=== PATIENT | male | born 1985 | race Caucasian/White ===

== ENCOUNTER 2020-02-08 17:44 | Emergency (ER) | payer OTHER, SELFPAY ==
[2020-02-08 17:50] VITALS: BP 129/82; PULSE 93; RESP 16; TEMP 37; O2SAT 99
--- NOTE | 2020-02-08 18:00 | DI.RAD_ITS ---
EXAM: XR FOOT LT COMPLETE CLINICAL HISTORY: atraumatic severe pain base of great toe. TECHNIQUE: 2D digital imaging was performed. COMPARISON: No exams were available for comparison FINDINGS: BONES: No acute fracture is present. No bony destructive lesion is seen. Small enthesophyte at the Ac hilles insertion site. JOINTS: No dislocation present. SOFT TISSUE: Normal. IMPRESSION: No acute abnormality. DATA REPOSITORY: RADIATION DOSE DELIVERED:
--- NOTE | 2020-02-08 18:05 | ED.GENADUL_ITS ---
Discharge Plan Disposition Patient Disposition: HOME Condition: Good Discharge Details Chief Complaint: Orthopedic Clinical Impression: Gout attack Primary Care Provider: None,None ED Provider: Karla Wallace Home Meds and New Rx's Prescriptions: New prednisone 10 mg tablet 10 mg PO DAILY Qty: 28 RF: 0 oxycodone 5 mg tablet 5 mg PO Q4H PRN (Reason: pain) Qty: 10 RF: 0 Discharge Instructions Instructions: Gout (ED) Additional Instructions: Encourage intake. Dietary changes discussed. You may use Tylenol and/or ibuprofen as needed for discomfort. You may augment this with the oxycodone as needed for pain. Please take this medication only as prescribed do not drive will take this medication. Please take the prednisone as prescribed. This is once daily dosing you are giving dosing already here today. Please continue with the postoperative shoe while pain persists. Please follow-up with primary care provider next week for reevaluation, I have asked her care support representative to help facilitate follow-up with primary. If you develop fever/chills, increased pain or other new/worsening symptoms please seek care urgently once again. Discharge Data Discharge Date/Time-TO BE ENTERED AT DEPARTURE: 02/08/20 19:45 Medical Decision Making <ISABELL Trinidad - Last Filed: 02/13/20 13:35> Patient is a pleasant 34-year-old male, accompanied by significant other, with chief complaint lower extremity pain. He reports that yesterday he began having severe pain in the left great toe. States that that time he noted to be erythematous and swollen. Erythema has subsided. Patient does report having history of gout. The single area of discomfort feels similar but he states that he awoke this morning having less severe discomfort in his bilateral ankles. He denies any fevers or chills. 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 No new shoes. Do not feel there particularly worn out. Denies any known trauma. Patient is not a diabetic. States his last episode of gout was several years ago. On exam, patient appears nontoxic. He is resting comfortably. He does ambulate with an antalgic gait. He has exquisite tenderness with small movements of the left great toe. He does have some mild erythema that almost appears more consistent with a urticarial rash on the dorsum of the great toe. No appreciable swelling, is not warm to the touch. He has full range of motion of the ankle although does endorse some discomfort with dorsiflexion. Angles appear equal bilaterally. Patient feels that they may be slightly swollen compared to his baseline but none is objectively noted. Again, no erythema, warmth or drainage. He has 2+ distal pulses bilaterally and brisk capillary refill. I see no evidence of infection. If this is gout, would be a very to presentation. As he has been more active and has a severity of discomfort it is possible he has a stress fracture and we will obtain x-rays. Other possibility would be for a typical gout flare and plan for labs to include uric acid as well as CBC for potential screening of infectious source. Labs reviewed. No leukocytosis. Patient has elevated CRP, elevated uric acid. This is confirmed the is a concern for gout. Plan to treat with prednisone. His pain is quite severe, will give oxycodone to be taken as needed. Patient given strict return precautions. We discussed the expected course. He will fo llow-up with his primary care next week for reevaluation. All of his questions or concerns were addressed and he is in agreement this plan. <Abhi Weaver MD - Last Filed: 02/08/20 22:54> I was physically present in the ED at time of evaluation and available for consultation. I was not consulted on this case. I did review documentation and agree with treatment plan as outlined. HPI <ISABELL Trinidad - Last Filed: 02/13/20 13:35> General Mode of arrival: wheelchair . Date/Time Provider Initiated Documentation: 02/08/20 18:05 . Limitations to Documentation: no limitations . Information obtained by: patient, family and RN notes reviewed . History of Present Illness 34 year old M presents to the emergency department with the chief complaint of left great toe and bilateral ankle , described as severe, with intensity rated at 9. Quality is described as stabbing, and is localized to the left, right and lower extremity. Patient reports no radiation. Patient started experiencing this day(s) (1) and it has been constant. Immobilization improves symptom(s), Movement worsens symptoms . Patient notes no other symptoms.; denies cough, fever/chills, nausea/vomiting, rash, shortness of breath and weakness. Patient did receive the following treatments prior to arrival, none Related Data Home Medications Medication Instructions Recorded Confirmed oxycodone 5 mg PO Q4H PRN #10 tab 02/08/20 prednisone 10 mg PO DAILY #28 tab 02/08/20 Previous Rx's Medication Instructions Recorded oxycodone 5 mg PO Q4H PRN #10 tab 02/08/20 prednisone 10 mg PO DAILY #28 tab 02/08/20 Allergies Allergy/AdvReac Type Severity Reaction Status Date / Time No Known Allergies Allergy Unverified 02/08/20 17:49 General Stated Complaint: Orthopedic FATOU: 3 Review of Systems <ISABELL Trinidad - Last Filed: 02/13/20 13:35> Constitutional Constitutional: Reports as per HPI, Denies chills, Denies fever(s), Denies headache(s) and Denies weakness ENT Ears, Nose, Mouth, and Throat: Denies headache(s) Cardiovascular Cardiovascular: Reports as per HPI Respiratory Respiratory: Reports as per HPI and Denies cough Musculoskeletal Musculoskeletal: Reports as per HPI and Denies tingling Integumentary/Breasts Skin/Breast: Reports as per HPI and Denies wounds Neurologic Neurologic: Reports as per HPI, Denies headache(s), Denies tingling, Denies paresthesias and Denies weakness [facility] <ISABELL Trinidad - Last Filed: 02/13/20 13:35> Medical History (Updated 02/08/20 @ 19:22 by ISABELL Trinidad) Gout attack (Acute) Social History Smoking/Tobacco Use Status: Never Alcohol Intake: never Drug use: Daily Substance use type: marijuana Do you feel safe at home: Yes Do you feel safe in your relationship?: Yes Exam <ISABELL Trinidad - Last Filed: 02/13/20 13:35> Const General: cooperative, healthy appearing, comfortable, no acute distress, well developed and well groomed Nutritional Appearance: well nourished and overweight Orientation: alert and awake Resp Effort & Inspection: normal respiratory effort, able to speak in complete sentences and no respiratory distress Cardio Rate: regular rate Rhythm: regular rhythm Skin General skin exam: erythema (mild erythema dorsal great toe) Neuro General: patient alert and patient awake Cognition: normal cognition Speech: speech normal Gait: antalgic Motor: muscle tone normal throughout Sensory Exam: no sensory deficits noted Extrem Right lower extremity: normal to inspection, full ROM, normal capillary refill, no joint enlargement, lower leg Details: normal to inspection, ankle Details: normal to inspection and foot Details: normal capillary refill and normal to inspection Left lower extremity: normal capillary refill, no joint enlargement, lower leg Details: normal to inspection and no edema; no tenderness, no localized swelling and no palpable cords and ankle Psych Appearance: grossly normal and well kempt Mental Status: mental status grossly normal Speech and Movement: speech and movement normal Course <ISABELL Trinidad - Last Filed: 02/13/20 13:35> Vital Signs Vital signs: Vital Signs Temperature 37 C 02/08/20 17:50 Pulse 93 H 02/08/20 17:50 Respiratory Rate 16 02/08/20 17:50 Blood Pressure 129/82 02/08/20 17:50 Pulse Oximetry 99 02/08/20 17:50 Temperature 37 C 02/08/20 17:50 Temperature Source Temporal Artery Scan 02/08/20 17:50 Pulse 93 H 02/08/20 17:50 Respiratory Rate 16 02/08/20 17:50 Respiratory Effort Non-Labored 02/08/20 17:54 Blood Pressure 129/82 02/08/20 17:50 Blood Pressure Position Sitting 02/08/20 17:50 Pulse Oximetry 99 02/08/20 17:50 Oxygen Delivery Method Room Air 02/08/20 17:50 Oxygen Flow Rate 0 02/08/20 17:50 Pain Level 9 02/08/20 17:50
[2020-02-08 18:42] LABS: Abs Immature Grans 0.02 k/cumm (0.0-0.09); Absolute Basophil Count 0.04 k/cumm (0.0-0.2); Absolute Eosinophil Count 0.19 k/cumm (0.0-0.7); Absolute Lymphocyte Count 2.55 k/cumm (1.2-3.4); Absolute Monocyte Count 0.79 k/cumm (0.11-0.7); Absolute Neutrophil Count 5.22 k/cumm (1.2-6.7); Basophils % 0.5; Eosinophils % 2.2; HCT 42.4 % (40.0-50.0); HGB 14.7 g/dL (13.5-17.5); Immature Grans % 0.2 %; Lymphocytes % 28.9; Mean Corp. HGB Concentration 34.7 g/dL (32.0-36.0); Mean Corpuscular Hemoglobin 30.2 pg (27.0-33.0); Mean Corpuscular Volume 87.1 fL (80-95); Mean Platelet Volume 10.1 fL (8.0-11.0); Neutrophils % 59.2; Platelet Count 255 x1000/uL (130-400); RBC 4.87 m/cumm (4.50-6.00); White Blood Cell Count 8.81 k/cumm (4.4-10.8)
--- NOTE | 2020-02-08 18:53 | DI.VRAD_ITS ---
PROCEDURE INFORMATION: Exam: XR Left Foot Complete Exam date and time: 02/08/2020 6:47 PM Age: 34 years old Clinical indication: Foot; Left; Patient HX: Pain base of 1st toe and ankle TECHNIQUE: Imaging protocol: XR Left foot. Views: 3 or more views. COMPARISON: No relevant prior studies available. FINDINGS: Bones/joints: No acute fracture. Joint spaces are maintained. No significant degenerative changes about the foot. Calcaneal Achilles enthesopathy. Soft tissues: Normal. IMPRESSION: No acute findings. Dictated and Authenticated by: Pilo Garrison MD. Ordering:ADAN Acosta MD
[2020-02-08 18:55] LABS: ALT 38 U/L (16-63); AST 32 U/L (15-37); Albumin 4.2 g/dL (3.4-5.0); Alkaline Phosphatase 96 U/L (46-116); Anion Gap 13.1 mmol/L (3-11); BUN 12 mg/dL (7-18); Bilirubin, Total 0.6 mg/dL (0.2-1.0); C-Reactive Protein 1.31 mg/dL (0.0-0.3); CO2 24.9 mmol/L (21.0-32.0); CREATININE 1.06 mg/dL (0.70-1.30); Calcium 9.2 mg/dL (8.5-10.1); Chloride 102 mmol/L (98-107); Glucose 83 mg/dL (74-106); Potassium 3.6 mmol/L (3.5-5.1); Sodium 140 mmol/L (136-145); Total Protein 8.1 g/dL (6.4-8.2); Uric Acid 11.3 mg/dL (3.5-7.2)
[2020-02-08] MEDS: oxyCODONE 5 MG TAB PO (19:29)
[2020-02-08] MEDS: predniSONE 20 MG TAB 40 MG PO (19:29)
[2020-02-08 19:34] LABS: ESR 12 mm/hr (0-15)
== END 2020-02-08 19:45 | disposition home or self-care (01) ==
LOC: ER 19:52
PROVIDERS: Emergency Provider Physician Assistant
DX: M10.9 Gout, unspecified (principal)
CPT/HCPCS: 36415; 80053; 85652; 99283; 73630; 84550; 85025; 86140; J7512

== ENCOUNTER 2024-08-05 13:36 | Emergency (ER) | payer OTHER, SELFPAY ==
[2024-08-05] VITALS (11 sets, daily range): BP systolic 126–147; BP diastolic 86–93; PULSE 92–105; RESP 14–21; TEMP 36.6; O2SAT 94–97
--- NOTE | 2024-08-05 13:30 | RT.EKG_ITS ---
APPROVED REPORT Exam: Resting ECG Reason for Exam: Chest Pain Patient Location: E HR:103 bpm ECG Measurements Heart Rate 103 AXIS DC 175 P 22 QRSd 99 QRS 2 QT 330 T -2 QTc 433 Conclusion Sinus tachycardia...rate> 99 Low voltage, precordial leads...precordial leads <1.0mV
--- NOTE | 2024-08-05 13:52 | W.ED.GENAD ---
Discharge Plan Disposition Patient Disposition: Home Condition: Stable Discharge Details Clinical Impression: Chest pain, Foot pain, right Primary Care Provider: Unknown,Unknown ED Provider: Benny Webster Home Meds and New Rx's Prescriptions: Continued acetaminophen 500 mg tablet 3,000 mg PO DAILY diclofenac sodium 75 mg tablet,delayed release (DR/EC) 75 mg PO BID allopurinol 100 mg tablet 200 mg PO DAILY lisinopril 5 mg tablet 5 mg PO DAILY prazosin 1 mg capsule 1 mg PO BID Uro-Mag 84.5 mg mag (140 mg) capsule 100 mg PO TID multivitamin [Daily Multi-Vitamin] Tablet 1 tab PO DAILY Lion's Jhony 1 dose PO DAILY Patient Comments: Pt takes as an OTC supplement Ducor Tail 1 dose PO DAILY Patient Comments: Pt takes as an OTC supplement Rx Instructions: OTC supplement Reishi 1 dose PO DAILY Patient Comments: Pt takes as an OTC supplement Chaga 1 dose PO DAILY Patient Comments: Pt takes as an OTC supplement Cordyceps 1 dose PO DAILY Patient Comments: Pt takes as an OTC supplement prednisone 10 mg tablet 10 mg PO DAILY Qty: 28 0RF Rx Instructions: 4 tabs x 4 days 3 tabs x 2 days 2 tabs x 2 days 1 tab x 2 days oxycodone 5 mg tablet 5 mg PO Q4H PRN (Reason: pain) Qty: 10 0RF Discharge Instructions Additional Instructions: Your labs and imaging did not show any concerning findings Follow-up with your primary care provider within 1 to 2 weeks If you feel more ill or have severe worsening pain or difficulty breathing return to the emergency department for reevaluation HPI General Mode of arrival: ambulatory. Date/Time Provider Initiated Documentation: 08/05/24 13:37. Limitations to Documentation: no limitations. Information obtained by: patient. History of Present Illness 38 year old M presents to the emergency department with the chief complaint of chest pain, anxiety, described as moderate, Quality is described as aching, and is localized to the chest. Patient reports no radiation. and it has been constant. No relieving factors improve symptom(s), No exacerbating factors reported . Patient notes chest pain; denies diaphoresis, fever/chills and shortness of breath. Patient did receive the following treatments prior to arrival, none Related Data Home Medications ?Medication ?Instructions ?Recorded ?Confirmed oxycodone 5 mg tablet 5 mg PO Q4H PRN pain #10 tabs 02/08/20 08/05/24 prednisone 10 mg tablet 10 mg PO DAILY #28 tabs 02/08/20 08/05/24 Chaga 1 dose PO DAILY 08/05/24 08/05/24 Cordyceps 1 dose PO DAILY 08/05/24 08/05/24 Abigail Booker 1 dose PO DAILY 08/05/24 08/05/24 Reishi 1 dose PO DAILY 08/05/24 08/05/24 Ducor Tail 1 dose PO DAILY 08/05/24 08/05/24 acetaminophen 500 mg tablet 3,000 mg PO DAILY 08/05/24 08/05/24 allopurinol 100 mg tablet 200 mg PO DAILY 08/05/24 08/05/24 diclofenac sodium 75 mg 75 mg PO BID 08/05/24 08/05/24 tablet,delayed release lisinopril 5 mg tablet 5 mg PO DAILY 08/05/24 08/05/24 magnesium oxide (Uro-Mag) 100 mg PO TID 08/05/24 08/05/24 multivitamin (Daily Multi-Vitamin 1 tab PO DAILY 08/05/24 08/05/24 tablet) prazosin 1 mg capsule 1 mg PO BID 08/05/24 08/05/24 Previous Rx's ?Medication ?Instructions ?Recorded oxycodone 5 mg tablet 5 mg PO Q4H PRN pain #10 tabs 02/08/20 prednisone 10 mg tablet 10 mg PO DAILY #28 tabs 02/08/20 Allergies Allergy/AdvReac Type Severity Reaction Status Date / Time No Known Allergies Allergy Unverified 08/05/24 13:46 General Stated Complaint: Chest Pain FATOU: 2 Review of Systems All systems reviewed & are unremarkable except as noted in HPI and below Constitutional Constitutional: Denies chills, Denies fever(s) and Denies weakness Cardiovascular Cardiovascular: Reports chest pain Respiratory Respiratory: Denies cough Gastrointestinal Gastrointestinal: Denies abdominal pain, Denies nausea and Denies vomiting Integumentary/Breasts Skin/Breast: Denies rash Neurologic Neurologic: Denies weakness Exam Const Orientation: alert [facility] Head: normal to inspection Ears: external ears normal General nose exam: external nose normal Mouth: moist mucous membranes Neck Neck: normal visual inspection Resp Effort & Inspection: normal respiratory effort and able to speak in complete sentences Auscultation: clear to auscultation bilaterally Cardio Rate: regular rate GI Palpation: soft and nontender Skin General skin exam: no rashes or lesions noted Neuro General: patient alert and patient oriented x3 Extrem General: normal to inspection Psych Mental Status: mental status grossly normal Course Vital Signs Vital signs: Vital Signs Temperature 36.6 C 08/05/24 13:39 Pulse 104 H 08/05/24 13:39 Respiratory Rate 19 08/05/24 13:39 Blood Pressure 147/93 H 08/05/24 13:39 Pulse Oximetry 94 08/05/24 13:39 Temperature 36.6 C 08/05/24 13:39 Pulse 104 H 08/05/24 13:39 Respiratory Rate 08/05/24 13:39 Blood Pressure 147/93 H 08/05/24 13:39 Blood Pressure Position Sitting 08/05/24 13:39 Pulse Oximetry 94 08/05/24 13:39 Oxygen Delivery Method Room Air 08/05/24 13:39 Oxygen Flow Rate 0 08/05/24 13:39 Pain Level 6 08/05/24 13:39 Medical Decision Making 38-year-old male with a history of chronic pain in his legs, anxiety, comes in with chest pain. He says he was feeling well this morning but then went to therapy session around 930 which caused him to be really stressed and started having chest pain and feeling anxious. Denies any difficulty breathing, diaphoresis, vomiting. The pain did not resolve over 4 to 5 hours of came here. He describes the pain as an anterior chest aching. He has reproducible anterior chest pain. Clear lungs, he does appear anxious. He has equal peripheral pulses. No calf tenderness. He does state that he had a week of right mid foot pain with no known trauma. There is no swelling of the legs and intact sensation and pulses. There is no palpable or visible deformities of the foot. No warmth or erythema of the foot. I suspect he is having anxiety, will treat with Ativan and given his chest pain check a CBC, CMP troponin and D-dimer. He has no tearing back pain and equal peripheral pulses so doubt dissection. Given lack of trauma doubt fracture of the foot has no findings to suggest infectious etiology but will obtain x-rays to exclude stress fracture. Labs and imaging show no acute findings. Patient is stable. He had symptoms for over 3 hours do not feel any delta troponin is indicated. I suspect this was anxiety, he is stable for discharge he will follow-up with his PCP return precautions given Differential Diagnosis Differential Diagnosis: Anxiety, NSTEMI Medical Records Medical records reviewed: Yes I reviewed the patient's medical records. Lab Data Lab results reviewed: Yes I reviewed the patient's lab results. ECG Data Attestation: I personally reviewed and interpreted this ECG (s) as follows: Prior ECG tracings: not available for review Interpretation: Sinus tachycardia, rate 103, WI 175, no STEMI Quality:SDOH Health Related Social Needs: No Data to Display PFSH All Active Problems (Updated 08/05/24 @ 15:12 by Benny Webster MD) Foot pain, right (Acute) Chest pain (Acute) Medical History (Updated 08/05/24 @ 15:12 by Benny Webster MD) Gout attack Social History Smoking/Tobacco Use Status: Never Smoking risk assessment performed?: Yes Alcohol Intake: never Drug use: Daily Substance use type: marijuana Do you feel safe at home: Yes Do you feel safe in your relationship?: Yes
[2024-08-05 13:57] LABS: Abs Immature Grans 0.04 10^3/uL (0.0-0.06); Absolute Basophil Count 0.05 10^3/uL (0.0-0.2); Absolute Lymphocyte Count 2.19 10^3/uL (1.2-3.4); Absolute Monocyte Count 0.56 10^3/uL (0.1-0.8); Absolute Neutrophil Count 4.65 10^3/uL (1.2-6.7); Basophils % 0.7 %; HCT 46.5 % (40.0-50.0); HGB 15.6 g/dL (13.5-17.5); Immature Grans % 0.5 %; Lymphocytes % 29.2 %; MCH 30.1 pg (27.0-33.0); MCHC 33.5 % (32.0-36.0); MCV 90 fL (80-95); MPV 9.9 fL (8.0-11.0); Monocytes % 7.5 %; Neutrophils % 62.1 %; Platelet Count 217 10^3/uL (130-400); RBC 5.19 10^6/uL (4.36-5.78); RDW 11.8 % (11.8-14.1); RDW-SD 38.7 fL; WBC 7.49 10^3/uL (4.4-10.8)
[2024-08-05] MEDS: LORazepam 2 MG/ML VIAL 1 MG IVP (14:06)
[2024-08-05 14:16] LABS: ALT 38 U/L (16-63); AST 24 U/L (15-37); Albumin 3.9 g/dL (3.4-5.0); Alkaline Phosphatase 102 U/L (46-116); Anion Gap 9.4 mmol/L (3-11); BUN 12 mg/dL (7-18); Bilirubin, Total 0.59 mg/dL (0.2-1.0); CO2 25.6 mmol/L (21.0-32.0); CREATININE 1.1 mg/dL (0.70-1.30); Calcium 9.2 mg/dL (8.5-10.1); Chloride 103 mmol/L (98-107); Estimated GFR 88.12 (mL/min/1.73m2); Glucose 122 mg/dL (74-106); Magnesium 2.2 mg/dL (1.8-2.4); Potassium 3.9 mmol/L (3.5-5.1); Sodium 138 mmol/L (136-145); Total Protein 7.4 g/dL (6.4-8.2)
[2024-08-05 14:30] LABS: Troponin I < 4 ng/L (<or=76)
[2024-08-05 14:31] LABS: D-Dimer 184 ng/mlFEU (<500)
--- NOTE | 2024-08-05 15:05 | DI.RAD_ITS ---
Exam(s) XR FOOT RT COMPLETE EXAM: XR FOOT RT COMPLETE CLINICAL HISTORY: pain. TECHNIQUE: 2D digital imaging was performed. Three views. COMPARISON: CR,XR XR FOOT LT COMPLETE from 02/08/2020 FINDINGS: BONES: No acute fracture is present. No bony destructive lesion is seen. Heel spurs. Metallic ancho rs noted in posterior talus. JOINTS: No dislocation present. SOFT TISSUE: Normal. IMPRESSION: No acute abnormality. DATA REPOSITORY: RADIATION DOSE DELIVERED:
--- NOTE | 2024-08-05 15:05 | DI.RAD_ITS ---
Exam(s) XR CHEST 2V PA LATERAL EXAM: XR CHEST 2V PA LATERAL CLINICAL HISTORY: chest pain TECHNIQUE: 2D digital imaging was performed. Two views. COMPARISON: No exams were available for comparison FINDINGS: HEART: Normal size. Aorta: Not dilated. PULMONARY VASCULATURE: Normal. MEDIASTINUM: Unremarkable. LUNGS: Clear. PLEURAL SPACE: No pleural effusion or pneumothorax. BONE:Unremarkable for age. SOFT TISSUES: Unremarkable. IMPRESSION: No acute abnormality. DATA REPOSITORY: RADIATION DOSE DELIVERED:
--- OUTSIDE RECORDS SUMMARY | 2024-08-05 15:22 | XMS_ITS | Encounter Summary ---
Author Organization [facility] Address [address] [place] [address] Care Team Providers Care Electric Organ Inspector And Repairer Name Role Phone Ariel Swanson DPAmina Unavailable Smita Daigle MD Primary Care Provider [phone] Reason for Visit * Reason Comments Ankle Pain * Auth/Cert (Routine) Specialty Diagnoses / Procedures Referred By Contac t Referred To Contact Referral ID Status Reason Start Date Expiration Date Visits Re quested Visits Authorized [id number] 1 1 Encounter Details Date Type Department Care Team (Late st Contact Info) Description 07/14/2024 12:36 PM EDT - 07/14/2024 1:43 PM EDT Emergency [facility] Emergency Department [address] [place] [phone] Discharge Disposition: Home or Self Care Social History Tobacco Use Types Packs/Day Years Used Date Smoking Tobacco: Never Smokeless Tobacco: Never Tobacco Cessation:Counseling Given: Not Answered Sex and Gender Information Value Date Recorded Sex Assigned at Not on file Gender Identity Not on file Sexual Orientation Not on file documented as of this encounter Last Filed Vital Signs Vital Sign Reading Time Taken Comments Blood Pressure 146/110 07/14/2024 12:35 PM EDT Pulse 80 07/14/2024 12:35 PM EDT Temperature 36.8 ??C (98.3 ??F) 07/14/2024 12:35 PM E DT Respiratory Rate 18 07/14/2024 12:35 PM EDT Oxygen Saturation 96% 07/14/2024 12:35 PM EDT Inhaled Oxygen Concentration 96% 07/14/2024 1 2:35 PM EDT Weight 113.4 kg (250 lb) 07/14/2024 12:35 PM EDT Height 185.4 cm (6' 1) 07/14/2024 12:35 PM EDT Body Mass Index 32.98 07/14/2024 12:35 PM EDT documented in this encounter Functional Status Functional Status Response Date of Assessment Stat us Are you deaf or do you have serious difficulty hearing? No 07/14/2024 Active Are you blind or do you have serious difficulty seeing, even when wearing glasses? No 07/14/2024 Activ e Do you have serious difficul ty walking or climbing stairs? (5 years old or older) No 07/14/2024 Active Do you have difficulty dress ing or bathing? (5 years old or older) No 07/14/2024 Active Because of a physical, menta l, or emotional condition, do you have difficulty doing errands alone such as visiting a doctor's office or shopping? (15 years old or older) No 07/14/2024 Active Cognitive Status Response Date of Assessment Statu s Because of a physical, menta l, or emotional condition, do you have serious difficulty concentrating, remembering, or making decisions? (5 years old or older) No 07/14/2024 Active documented as of this encounter Discharge Instructions * Discharge Instructions* Dhiraj Rodriguez PAC - 07/14/2024 1:23 PM EDT Your workup in the emergency department is significant for bone spurs of both of your heels. Is most likely what is causing you pain along with inflammation from osteoarthritis. Please continue to treat with Tylenol or NSAIDs. Please ice. He will need to follow-up with PCP/orthopedics for further management. documented in this encounter Medications at Time of Discharge Medication Sig Dispensed Refills Start Date End Date acetaminophen (Tylenol) 500 MG Tab TAKE 2 TABLETS (1000MG) BY MOUTH THREE TIMES A DAY NEEDED FOR PAIN 0 02/25/2024 02/25/2025 allopurinol (Zyloprim) 100 MG Tab TAKE TWO TABLETS BY MOUTH EVERY DAY FOR INCREASED URIC ACID 0 03/27/2024 03/28/2025 diclofenac (Voltaren) 75 MG Tablet Delayed ResponseIndications:Ar thritis of right ankle Take 1 Tablet (75 mg total) by mouth 2 times daily. 60 Tablet 3 04/14/2024 Diclofenac Sodium 1 % Gel APPLY 2 GRAMS TOPICALLY FOUR TIMES A DAY NEEDED FOR PAIN (USE SUPPLIED DOSE CARD)--DON'T EXCEED 16 GRAMS DAILY TO ANY AFFECTED JOINT OF THE LOWER EXTREMITIES. DON'T EXCEED 8 GRAMS DAILY TO ANY AFFE 0 09/17/2023 02/25/2025 lidocaine (Lidoderm) 5 % Patch APPLY 1 PATCH TO THE SKIN EVERY DAY NEEDED FOR PAIN (APPLY PATCH AND PRESS FIRMLY FOR 10 TO 15 SECONDS. PATCH MAY REMAIN IN PLACE FOR UP TO 12 HOURS IN ANY 24 HOUR PERIOD) 0 02/25/2024 02/25/2025 lisinopril 5 MG Tab 5 mg. 0 02/25/2024 magnesium oxide 140 MG Cap 140 mg. 0 02/25/2024 prazosin (Minipress) 1 MG Cap 1 mg. 0 02/25/2024 documented as of this encounter ED Notes * Dhiraj Rodriguez, PAC - 07/14/2024 12:37 PM EDT History Chief Complaint Patient presents with Ankle Pain Chief Complaint: Bilateral ankle pain HPI This is a 38 y.o. male who presents with past medical history of gout status post right fibula fixation with screws presents with bilateral ankle pain that brought him to tears today [place].Patient states that he was at [facility] 3 days ago and walked more than normal and now his ankles have been hurting. [facility] and was unable to bear weight had to sit down and was in tears. EMS was called. He did take Tylenol this morning and was given oral Tylenol en route. CMS intact. Denies any trauma. No fevers nausea or vomiting.. Past Medical History: Diagnosis Date Gout History reviewed. No pertinent surgical history. Social History Tobacco Use Smoking status: Never Smokeless tobacco: Never Review of Systems Constitutional: Negative for chills, diaphoresis, fatigue and fever. HENT: Negative. Eyes: Negative. Respiratory: Negative for cough, chest tightness and shortness of breath. Cardiovascular: Negative for chest pain, palpitations and leg swelling. Gastrointestinal: Negative for abdominal pain, diarrhea, nausea and vomiting. Endocrine: Negative. Genitourinary: Negative. Musculoskeletal: Ankle pain Skin: Negative. Allergic/Immunologic: Negative. Neurological: Negative for dizziness and light-headedness. Hematological: Negative. Psychiatric/Behavioral: Negative. Physical Exam Triage Vitals [07/14/24 1235] Temperature Heart Rate BP Respirations SpO2 36.8 ??C (98.3 ??F) 80 (!) 146/110 18 96 % Oximeter Pulse -- Physical Exam Vitals and nursing note reviewed. Constitutional: General: He is not in acute distress. Appearance: Normal appearance. He is not ill-appearing or toxic-appearing. Comments: Alert and aware male in no acute distress HENT: Head: Normocephalic and atraumatic. Nose: Nose normal. Mouth/Throat: Mouth: Mucous membranes are moist. Pharynx: Oropharynx is clear. Eyes: Extraocular Movements: Extraocular movements intact. Cardiovascular: Rate and Rhythm: Normal rate and regular rhythm. Pulses: Normal pulses. Heart sounds: Normal heart sounds. No murmur heard. No friction rub. No gallop. Pulmonary: Effort: Pulmonary effort is normal. Breath sounds: Normal breath sounds. No wheezing, rhonchi or rales. Abdominal: Palpations: Abdomen is soft. Tenderness: There is no abdominal tenderness. There is no guarding or rebound. Musculoskeletal: General: Normal range of motion. Cervical back: Normal range of motion. Comments: Bilateral ankle pain, right greater than left. Right ankle with swelling to the lateral malleolus and there is tenderness there. Mild tenderness to the medial malleolus. No fifth metatarsal tenderness. He does have full range of motion neurovascular intact. Left ankle with mild tenderness to the Achilles heel. He has a negative Allison's test. Full rangeof motion. Tendon appears to be intact. There is no medial or lateral malleolar fifth metatarsal tenderness. Neurovascularly intact Skin: General: Skin is warm and dry. Capillary Refill: Capillary refill takes less than 2 seconds. Findings: No rash. Neurological: General: No focal deficit present. Mental Status: He is alert and oriented to person, place, and time. Psychiatric: Mood and Affect: Mood normal. Behavior: Behavior normal. Procedures Pertinent diagnostic study results include: Diagnostic Imaging : XR Ankle Left Min 3 VW (07/14/2024 12:48) XR Ankle Right Min 3 VW (07/14/2024 12:48) EXAM: XR ANKLE RIGHT MIN 3 VW, XR ANKLE LEFT MIN 3 VW INDICATION: Bilateral ankle pain COMPARISON: None. TECHNIQUE: Three view(s) of the bilateral ankle were obtained. FINDINGS: Chronic postoperative/posttraumatic changes of the right ankle are demonstrated. Specifically, well-corticated ossific densities associated with the malleoli and screw anchors associated with the lateral malleolus are demonstrated. Asymmetric degenerative changes are demonstrated in association with the ankle mortise and subtalar joints. The tibiofibular syndesmosis also appears with some chronic appearing degenerative/posttraumatic change. The left ankle otherwise appears without distinct posttraumatic change or the appearance of clinically significant degenerative change. Calcaneal spurring is demonstrated bilaterally and symmetric. Right os perineum. Otherwise, the visualized osseous structures are intact without evidence of acute fracture, subluxation or dislocation. No significant erosive or destructive osseous changes. No retained radiopaque foreign bodies. The soft tissues are grossly within normal limits. IMPRESSION: No evidence of acute fracture or pathologic malalignment. Bilateral calcaneal spurring.Posttraumatic/postoperative and other associated degenerative changes of the right ankle as above. MDM (ED Course and Disposition) ASSESSMENT and PLAN This is a 38 y.o. male who presents with bilateral ankle pain, status post ORIF right fibula. Afebrile hemodynamic stable. Exam as above. Imaging shows bilateral calcaneal bone spurring, there is no acute fractures or dislocations. He has postsurgical changes in the right ankle. Patient did receive ketorolac. He will need to follow-up with PCP/orthopedics for further management. He is otherwise stable ready for discharge. Patient agrees with understands plan. Encounter Diagnosis Name Primary? Calcaneal spur of both feet Yes MDM: MDM Section: Refer to note content and Assessment/Plan ED CRITICAL CARE: Critical Care: No Dhiraj Rodriguez PAC 07/14/24 1324 * Angeles Blount RN - 07/14/2024 12:36 PM EDT Bed: ED 06 Expected date: 07/14/24 Expected time: 12:19 PM Means of arrival: [facility] Comments: 38 yo M * Ibrahima Delgado RN - 07/14/2024 12:27 PM EDT Pt BIB EMS d/t bilateral ankle pain. Pre existing repair to right ankle with osteoarthritis. Left ankle has been in pain x3 days. The right ankle has been in pain since march 26 of this year. Pt denies any injury or trauma to either ankle. Does report history of gout which he takes allopurinol for. Has been walking around [facility] for family vacation and started to bother him there. Has beenutilizing a cane, crutches, and a knee scooter for pain control/mobility. documented in this encounter Plan of Treatment Upcoming Encounters Date Type Department Care Team (Late st Contact Info) Description 08/07/2024 11:20 AM EDT Office Visit [facility] Orthopedics Sports Medicine and Podiatry [place] [address] [place] [phone] Ariel Swanson DPM [address] [place] [address] documented as of this encounter Procedures Procedure Name Priority Date/Time Associated Diagnosis Comments XR ANKLE RIGHT MIN 3 VW STAT 07/14/2024 1:03 PM EDT XR ANKLE LEFT MIN 3 VW STAT 07/14/2024 1:03 PM EDT documented in this encounter Results * XR Ankle Right Min 3 VW (07/14/2024 1:03 PM EDT) Anatomical Region Laterality Modality Leg, Ankle, Foot Computed Radiog radha 07/14/2024 12:5 5 PM EDT Narrative 07/14/2024 1:18 PM EDT EXAM: XR ANKLE RIGHT MIN 3 VW, XR ANKLE LEFT MIN 3 VW INDICATION: Bilateral ankle pain COMPARISON: None. TECHNIQUE: Three view(s) of the bilateral ankle were obtained. FINDINGS: ?? Chronic postoperative/posttraumatic changes of the right ankle are demonstrated. Specifically, well-corticated ossific densities associated with the malleoli and screw anchors associated with the lateral malleolus are demonstrated. Asymmetric degenerative changes are demonstrated in association with the ankle mortise and subtalar joints. The tibiofibular syndesmosis also appears with some chronic appearing degenerative/posttraumatic change. The left ankle otherwise appears without distinct posttraumatic change or the appearance of clinically significant degenerative change. Calcaneal spurring is demonstrated bilaterally and symmetric. Right os perineum. Otherwise, the visualized osseous structures are intact without evidence of acute fracture, subluxation or dislocation. No significant erosive or destructive osseous changes. ?? No retained radiopaque foreign bodies. ??The soft tissues are grossly within normal limits. ? IMPRESSION: No evidence of acute fracture or pathologic malalignment. Bilateral calcaneal spurring. Posttraumatic/postoperative and other associated degenerative changes of the right ankle as above. WORKSTATION: [id number] * * THIS IS AN ELECTRONICALLY VERIFIED REPORT CREATED USING VOICE RECOGNITION ??* * 07/14/2024 1:16 PM ??Rito Renee DO Procedure Note Rito Renee DO - 07/14/2024 EXAM: XR ANKLE RIGHT MIN 3 VW, XR ANKLE LEFT MIN 3 VW INDICATION: Bilateral ankle pain COMPARISON: None. TECHNIQUE: Three view(s) of the bilateral ankle were obtained. FINDINGS: Chronic postoperative/posttraumatic changes of the right ankle aredemonstrated. Specifically, well-corticated ossific densities associatedwith the malleoli and screw anchors associated with the lateral malleolusare demonstrated. Asymmetric degenerative changes are demonstrated in association with the anklemortise and subtalar joints. The tibiofibular syndesmosis also appearswith some chronic appearing degenerative/posttraumatic change. The leftankle otherwise appears without distinct posttraumatic change or the appearance of clinically significantdegenerative change. Calcaneal spurring is demonstrated bilaterally and symmetric. Right osperineum. Otherwise, the visualized osseous structures are intact without evidenceof acute fracture, subluxation or dislocation. No significant erosive or destructive osseous changes. No retained radiopaque foreign bodies. The soft tissues are grosslywithin normal limits. IMPRESSION: No evidence of acute fracture or pathologic malalignment.Bilateral calcaneal spurring. Posttraumatic/postoperative and otherassociated degenerative changes of the right ankle as above. WORKSTATION: [id number] * * THIS IS AN ELECTRONICALLY VERIFIED REPORT CREATED USING VOICERECOGNITION * * 07/14/2024 1:16 PM Rito Renee DO Dhiraj Rodriguez PAC IMG DIAGNOSTIC IMAGI NG ORDERABLES * XR Ankle Left Min 3 VW (07/14/2024 1:03 PM EDT) Anatomical Region Laterality Modality Leg, Ankle, Foot Computed Radiog radha 07/14/2024 12:5 0 PM EDT Narrative 07/14/2024 1:18 PM EDT EXAM: XR ANKLE RIGHT MIN 3 VW, XR ANKLE LEFT MIN 3 VW INDICATION: Bilateral ankle pain COMPARISON: None. TECHNIQUE: Three view(s) of the bilateral ankle were obtained. FINDINGS: ?? Chronic postoperative/posttraumatic changes of the right ankle are demonstrated. Specifically, well-corticated ossific densities associated with the malleoli and screw anchors associated with the lateral malleolus are demonstrated. Asymmetric degenerative changes are demonstrated in association with the ankle mortise and subtalar joints. The tibiofibular syndesmosis also appears with some chronic appearing degenerative/posttraumatic change. The left ankle otherwise appears without distinct posttraumatic change or the appearance of clinically significant degenerative change. Calcaneal spurring is demonstrated bilaterally and symmetric. Right os perineum. Otherwise, the visualized osseous structures are intact without evidence of acute fracture, subluxation or dislocation. No significant erosive or destructive osseous changes. ?? No retained radiopaque foreign bodies. ??The soft tissues are grossly within normal limits. ? IMPRESSION: No evidence of acute fracture or pathologic malalignment. Bilateral calcaneal spurring. Posttraumatic/postoperative and other associated degenerative changes of the right ankle as above. WORKSTATION: [id number] * * THIS IS AN ELECTRONICALLY VERIFIED REPORT CREATED USING VOICE RECOGNITION ??* * 07/14/2024 1:16 PM ??Rito Renee DO Procedure Note Rito Renee DO - 07/14/2024 EXAM: XR ANKLE RIGHT MIN 3 VW, XR ANKLE LEFT MIN 3 VW INDICATION: Bilateral ankle pain COMPARISON: None. TECHNIQUE: Three view(s) of the bilateral ankle were obtained. FINDINGS: Chronic postoperative/posttraumatic changes of the right ankle aredemonstrated. Specifically, well-corticated ossific densities associatedwith the malleoli and screw anchors associated with the lateral malleolusare demonstrated. Asymmetric degenerative changes are demonstrated in association with the anklemortise and subtalar joints. The tibiofibular syndesmosis also appearswith some chronic appearing degenerative/posttraumatic change. The leftankle otherwise appears without distinct posttraumatic change or the appearance of clinically significantdegenerative change. Calcaneal spurring is demonstrated bilaterally and symmetric. Right osperineum. Otherwise, the visualized osseous structures are intact without evidenceof acute fracture, subluxation or dislocation. No significant erosive or destructive osseous changes. No retained radiopaque foreign bodies. The soft tissues are grosslywithin normal limits. IMPRESSION: No evidence of acute fracture or pathologic malalignment.Bilateral calcaneal spurring. Posttraumatic/postoperative and otherassociated degenerative changes of the right ankle as above. WORKSTATION: Mine * * THIS IS AN ELECTRONICALLY VERIFIED REPORT CREATED USING VOICERECOGNITION * * 07/14/2024 1:16 PM Rito Renee DO Dhiraj Rodriguez PAC IMG DIAGNOSTIC IMAGI NG ORDERABLES documented in this encounter Visit Diagnoses Diagnosis Calcaneal spur of both feet- Primary documented in this encounter Administered Medications Inactive Administered Medications - up to 3 most recent administrations Medication Order MAR Action Action Date Dose Rate Site ketorolac (Toradol) injection 15 mg 15 mg, Intramuscular, Once, On Sat07/14/24 at 1300, For 1 dose, When ordered IV administer undiluted IV push over 15 seconds. Possible side effects: headache, stomach upset, heartburn. Given 07/14/2024 12:58 PM EDT 15 mg Left Deltoid documented in this encounter Active and Recently Administered Medications Times are shown in EDT. Scheduled Medication Order 07/12/2024 07/13/2024 07/14/2024 ketorolac (Toradol) injection 15 mg (COMPLETED) 15 mg, Intramuscular, Once, On Sat07/14/24 at 1300, For 1 dose, When ordered IV administer undiluted IV push over 15 seconds. Possible side effects: headache, stomach upset, heartburn. 1258 (Given - Provid er: Benny Miranda RN) documented in this encounter Care Teams Electric Organ Inspector And Repairer Relationship Specialty Start Date End Date Smita Daigle MD [address] [place] [address] PCP - General Family Medicine 07/14/24 Ariel Swanson DPM [address] [place] [address] Physician Podiatry 04/14/24 documented as of this encounter
--- OUTSIDE RECORDS SUMMARY | 2024-08-05 15:22 | XMS_ITS | Encounter Summary ---
Author Organization [facility] Address [address] [place] [address] Care Team Providers Care Screw Cutter Name Role Phone Abigail Jesus NP Primary Care Provider + [phone] Ariel Swanson DPAmina Unavailable Encounter Details Date Type Department Care Team (Late st Contact Info) Description 04/14/2024 Abstract [facility] Orthopedics Sports Medicine and Podiatry [address] [phone] Ariel Swanson DPM [address] [place] [address] Social History Tobacco Use Types Packs/Day Years Used Date Smoking Tobacco: Never Smokeless Tobacco: Never Sex and Gender Information Value Date Recorded Sex Assigned at Not on file Gender Identity Not on file Sexual Orientation Not on file documented as of this encounter Plan of Treatment Upcoming Encounters Date Type Department Care Team (Late st Contact Info) Description 08/07/2024 11:20 AM EDT Office Visit [facility] Orthopedics Sports Medicine and Podiatry [address] [phone] Ariel Swanson DPM [address] [place] [address] documented as of this encounter Visit Diagnoses Not on filedocumented in this encounter Care Teams Screw Cutter Relationship Specialty Start Date End Date Abigail Jesus NP [address] [place] [address] PCP - General Nurse Practitioner 04/10/24 07/13/24 Ariel Swanson DPM [address] [place] [address] Physician Podiatry 04/14/24 documented as of this encounter
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
--- OUTSIDE RECORDS SUMMARY | 2024-08-05 15:22 | XMS_ITS | Encounter Summary ---
Author Organization [facility] Address [address] [place] [address] Care Team Providers Care Photographic Printer Name Role Phone Abigail Jesus NP Primary Care Provider + [phone] Ariel Swanson DPM Unavailable Reason for Visit * Reason Comments Chest Pain * Auth/Cert (Routine) Specialty Diagnoses / Procedures Referred By Contac t Referred To Contact Referral ID Status Reason Start Date Expiration Date Visits Re quested Visits Authorized [id number] 1 1 Encounter Details Date Type Department Care Team (Late st Contact Info) Description 07/01/2024 11:07 AM EDT - 07/01/2024 1:43 PM EDT Emergency [facility] [address] [place] [phone] Discharge Disposition: Home or Self Care Social History Tobacco Use Types Packs/Day Years Used Date Smoking Tobacco: Never Smokeless Tobacco: Never Sex and Gender Information Value Date Recorded Sex Assigned at Not on file Gender Identity Not on file Sexual Orientation Not on file documented as of this encounter Last Filed Vital Signs Vital Sign Reading Time Taken Comments Blood Pressure 125/89 07/01/2024 1:41 PM EDT Pulse 58 07/01/2024 1:41 PM EDT Temperature 36.1 ??C (97 ??F) 07/01/2024 11:13 AM EDT Respiratory Rate 18 07/01/2024 1:41 PM EDT Oxygen Saturation 96% 07/01/2024 1:20 PM EDT Inhaled Oxygen Concentration 96% 07/01/2024 1 :20 PM EDT Weight 113.4 kg (250 lb) 07/01/2024 11:13 AM EDT Height 185.4 cm (6' 1) 07/01/2024 11:13 AM EDT Body Mass Index 32.98 07/01/2024 11:13 AM EDT documented in this encounter Functional Status Functional Status Response Date of Assessment Stat us Are you deaf or do you have serious difficulty hearing? No 07/01/2024 Active Are you blind or do you have serious difficulty seeing, even when wearing glasses? No 07/01/2024 Activ e Do you have serious difficul ty walking or climbing stairs? (5 years old or older) No 07/01/2024 Active Do you have difficulty dress ing or bathing? (5 years old or older) No 07/01/2024 Active Because of a physical, menta l, or emotional condition, do you have difficulty doing errands alone such as visiting a doctor's office or shopping? (15 years old or older) No 07/01/2024 Active Cognitive Status Response Date of Assessment Statu s Because of a physical, menta l, or emotional condition, do you have serious difficulty concentrating, remembering, or making decisions? (5 years old or older) No 07/01/2024 Active documented as of this encounter Discharge Instructions * Discharge Instructions* Sophia Luciano PAC - 07/01/2024 1:31 PM EDT Activities as tolerated. Maintain adequate hydration. Continue your current medications as directed. Close follow-up with your primary care provider for a recheck in the next 24 to 48 hours. Return to the emergency department with any worsening symptoms or concerns. * Attachments The following attachments cannot be sent through Care Everywhere. * Chest Pain (Cymraes) documented in this encounter Medications at Time [...] as of this encounter ED Notes * Sophia Luciano PAC - 07/01/2024 11:42 AM EDT History Chief Complaint Patient presents with Chest Pain Chief Complaint: chest pain HPI This is a 38 y.o. male with history of right ankle arthritis, PTSD, panic disorder, gout, who presents with chest pain. Patient was sent from the [place]. He states that his symptoms started yesterday afternoon. He reports heaviness and tightness in his upper chest. It seemed to radiate through to his back greater on the left than right. He did experience some shortness of breath. He states that he was not doing anything particularly strenuous at the time or throughout the day. Symptoms started after he ate. He notes that despite taking Tylenol Motrin and aspirin yesterday afternoon and evening his symptoms were persistent throughout the night to this morning. When he arrived at the [place] for a routine appointment today they sent him directly to the emergency department for evaluation. He states that he feels slight shortness of breath. He denies any pain with deep breathing. Pain seems to be worse when he moves specifically when he sits up. He rates his pain as an 9 out of 10 at this time. He denies any dizziness, headache, palpitations. He has been doing some long car trips over the past few weeks. No pain or swelling however in his extremities at this time. Family history of heart disease. He reports both his grandfathers in their 50s. He is not a smoker. He denies any fevers chills cough or congestion. No nausea vomiting or diaphoresis. History reviewed. No pertinent past medical history. History reviewed. No pertinent surgical history. Social History Tobacco Use Smoking status: Never Smokeless tobacco: Never Review of Systems Constitutional: Negative for chills and fever. HENT: Negative for congestion. Eyes: Negative. Respiratory: Negative for cough, shortness of breath and wheezing. Cardiovascular: Positive for chest pain. Negative for palpitations and leg swelling. Gastrointestinal: Negative for abdominal pain and nausea. Genitourinary: Negative. Musculoskeletal: Negative. Neurological: Negative. Psychiatric/Behavioral: Negative. Physical Exam Triage Vitals Temperature Heart Rate BP Respirations SpO2 07/01/24 1113 07/01/24 1113 07/01/24 1113 07/01/24 1113 07/01/24 1113 36.1 ??C (97 ??F) 69 (!) 137/102 16 97 % Oximeter Pulse 07/01/24 1115 58 Physical Exam Vitals and nursing note reviewed. Constitutional: General: He is not in acute distress. Appearance: He is not toxic-appearing or diaphoretic. HENT: Head: Normocephalic and atraumatic. Eyes: Extraocular Movements: Extraocular movements intact. Pupils: Pupils are equal, round, and reactive to light. Cardiovascular: Rate and Rhythm: Normal rate and regular rhythm. No extrasystoles are present. Heart sounds: Normal heart sounds. Pulmonary: Effort: Pulmonary effort is normal. No accessory muscle usage or respiratory distress. Breath sounds: No stridor. Examination of the right-middle field reveals decreased breath sounds. Examination of the left-middle field reveals decreased breath sounds. Examination of the right-lower field reveals decreased breath sounds. Examination of the left-lower field reveals decreased breath sounds. Decreased breath sounds present. No wheezing, rhonchi or rales. Comments: Taking a deep breath does not elicit pain Chest: Chest wall: No tenderness. Abdominal: General: Bowel sounds are normal. Palpations: Abdomen is soft. Musculoskeletal: General: Normal range of motion. Cervical back: Normal range of motion and neck supple. Right lower leg: No tenderness. No edema. Left lower leg: No tenderness. No edema. Comments: Right ankle is in a small Velcro splint Skin: General: Skin is warm and dry. Capillary Refill: Capillary refill takes less than 2 seconds. Neurological: General: No focal deficit present. Mental Status: He is alert and oriented to person, place, and time. Procedures Pertinent diagnostic study results include: EK sinus rhythm at a rate of 67, IL interval 175, QTc 410. No acute ST-T changes. Low voltage. No old EKG available for comparison. Interpreted by myself Labs: Labs Reviewed HS C-TROPONIN T - Normal CBC + AUTO DIFF - Normal D-DIMER DDU - Normal HS-CTNT 2 HOUR - Normal CBC + DIFFERENTIAL Narrative: The following orders were created for panel order CBC + Differential. Procedure Abnormality Status --------- ------ CBC and Differential[[id number]] Normal Final result Please view results for these tests on the individual orders. COMPREHENSIVE METABOLIC PANEL RAINBOW DRAW Narrative: The following orders were created for panel order [place] Draw - Blue, Red. Procedure Abnormality Status --------- ------ Blue Top[[id number]] Final result Red Top[[id number]] Final result Please view results for these tests on the individual orders. BLUE TUBE EXTRA RED TUBE EXTRA Diagnostic Imaging : Narrative & Impression EXAM: XR CHEST PORTABLE 1VW INDICATION: Chest Pain COMPARISON: None. TECHNIQUE: Single view of the chest. FINDINGS: The lungs are clear. There is no pleural effusion or pneumothorax. Mediastinal contour, hilar contour, heart size and pulmonary vascularity are within normal limits. Visualized osseous structures areunremarkable. IMPRESSION: No acute process identified. MDM (ED Course and Disposition) ASSESSMENT and PLAN This is a 38 y.o. male who [facility]. Patient states symptom started yesterday afternoon. He was not doing anything specific at the time. He denies any strenuous lifting. Pain persisted overnight into today despite taking Tylenol Motrin and aspirin yesterday. He has not taken any medications today. He states that the pain had him in tears this morning. He rates it as a 9 out of 10 at this time. It does radiate into his back. It is worse when he sits up. He denies any pain with deep breathing. No lower extremity pain or swelling. EKG has been done and reviewed. No acute EKG findings. IV established and labs have been sent. IV fluids, morphine, Zofran and aspirin have been ordered. Chest x-ray ordered. Cosideration for chest pain include but not limited to Myocardial ischemia, pericarditis, pulmonaryembolus, chest wall pain, pleural inflammation and pulmonary infectious causes. Heart score reviewed. ED Course as of 07/01/24 1241 SatJul 01, 2024 1241 Patient is resting comfortably at this time without complaints. Discomfort is improved after medications. Patient's D-dimer and troponin as well as other laboratory studies are otherwise unremarkable. Chest x-ray shows no evidence of infiltrate or pneumothorax. I discussed this with the patient. Plan will be for repeat troponin. I suspect this could be muscular, anxiety induced or esophageal spasm in nature. [SK] ED Course User Index [SK] Sophia Luciano PAC Patient has been resting without complaints. No return of symptoms. Repeat troponin remains negative. This is reassuring. I did discuss this with patient and family member at the bedside. I advised that he have close follow-up with his primary care provider. He does have some family history. He maybenefit from outpatient stress testing. In the meantime advised plenty of fluids, rest, anti-inflammatories and antacids as needed. Questions have been answered. Encounter Diagnosis Name Primary? Chest pain, unspecified type Yes MDM: MDM Section: Refer to note content and Assessment/Plan Labs: Ordered/reviewed Imaging: Ordered/reviewed ECG: Ordered/reviewed and Independent review ED CRITICAL CARE: Critical Care: No Spohia Luciano PAC 07/01/24 1423 * Fer Denney RN - 07/01/2024 11:09 AM EDT Central cp with radiation straight through the back. Constant pain with movements exacerbating pain, bending over reaching for anything or leaning forward. Sent from [place] clinic. Alert and oriented, gcs 15, no acute distress. documented in this encounter Plan of Treatment Upcoming Encounters Date Type Department Care Team (Late st Contact Info) Description 08/07/2024 11:20 AM EDT Office Visit [facility] [address] [place] [phone] Brend[address]ia [email or web address] [address] [place] [address] documented as of this encounter Procedures Procedure Name Priority Date/Time Associated Diagnosis Comments HS-CTNT 2 HOUR Timed 07/01/2024 1:04 PM EDT XR CHEST PORTABLE STAT 07/01/2024 11: 26 AM EDT EKG 12-LEAD STAT 07/01/2024 11:16 AM EDT RED TUBE EXTRA STAT 07/01/2024 11:15 AM EDT BLUE TUBE EXTRA STAT 07/01/2024 11:15 AM EDT HS C-TROPONIN T STAT 07/01/2024 11:15 AM EDT CBC + AUTO DIFF STAT 07/01/2024 11:15 AM EDT RAINBOW DRAW STAT 07/01/2024 11:15 AM EDT D-DIMER DDU STAT Add-on 07/01/2024 11:15 AM EDT CBC + DIFFERENTIAL STAT 07/01/2024 11 :15 AM EDT COMPREHENSIVE METABOLIC PANEL STAT 07/01/2024 11:15 AM EDT documented in this encounter Results * hs-TroponinT 2H (07/01/2024 1:04 PM EDT) HS-cTroponin T 2 Hour 6 </=13 ng/L 07/01/2024 1:25 PM EDT [facility] Comment:NORMAL Delta hs-TroponinT 2H 0 ng/L 07/01/2024 1:25 PM EDT [facility] Blood VENOUS STRUCTURE / Unknown Venipuncture / Unknown 07/01/2024 1:04 PM EDT 07/01/2024 1:06 PM EDT Ksenia Cano MD CHEMISTRY ORDERABLES [facility] [address] [id number] * XR Chest Portable 1VW (07/01/2024 11:26 [...] unremarkable. IMPRESSION: No acute process identified. WORKSTATION: [id number] * * THIS IS AN ELECTRONICALLY VERIFIED [...] areunremarkable. IMPRESSION: No acute process identified. WORKSTATION: [id number] * * THIS IS AN ELECTRONICALLY VERIFIED REPORT CREATED USING VOICERECOGNITION * * 07/01/2024 12:43 PM George Todd MD Ksenia Cano MD IMG DIAGNOSTIC IMAGI NG ORDERABLES * EKG 12 lead (07/01/2024 11:16 AM EDT) Pathologist [facility] ECG Heart Rate 67 bpm [facility]O ECG P-R Interval 175 ms [facility] ECG QRSD Interval 106 ms [facility] ECG QT Interval 388 ms [facility] ECG QTc 410 ms [facility]O ECG QRS Horizontal Tebbetts -18 deg [facility]O ECG QRS Tebbetts -1 deg [facility]ASTER NAVARRO 07/01/2024 11:1 6 AM EDT Impressions TRACEMASTER NAVARRO - 07/02/2024 7:58 AM EDT Sinus rhythm Low voltage, precordial leads RSR' in V1 or V2, right VCD or RVH Narrative Procedure Note Urbano Tran MD - 07/02/2024 IMPRESSION Sinus rhythm Low voltage, precordial leads RSR' in V1 or V2, right VCD or RVH Ksenia Cano MD ECG ORDERABLES [facility] * D-Dimer DDU (07/01/2024 11:15 AM EDT) [facility] D-Dimer DDU <150 <=230 ng/mL DDU 07/01/2024 12:33 PM EDT [facility] Comment:The stated range of <230 ng/mL is also the cut-off for deep vein thrombosis and/or pulmonary embolism exclusion in patients with low or moderate pretest probability. Blood VENOUS STRUCTURE / Unknown Venipuncture / Unknown 07/01/2024 11:15 AM EDT 07/01/2024 11:54 AM EDT Sophia LO HEMATOLOGY ORDERABLE S [facility] [address] [place] [address] * Red Top (07/01/2024 11:15 AM EDT) Just In Case - Red Top Hold for Add-on 07/01/2024 12:03 PM EDT [facility] Comment:Auto resulted Blood VENOUS STRUCTURE / Unknown Venipuncture / Unknown 07/01/2024 11:15 AM EDT 07/01/2024 11:54 AM EDT Ksenia Cano MD CHEMISTRY ORDERABLES [address] [address] * Blue Top (07/01/2024 11:15 AM EDT) Just In Case - Blue Top Hold for Add-on 07/01/2024 12:03 PM EDT [facility] Comment:Auto Resulted Blood VENOUS STRUCTURE / Unknown Venipuncture / Unknown 07/01/2024 11:15 AM EDT 07/01/2024 11:54 AM EDT Ksenia Cano MD CHEMISTRY ORDERABLES Performing Organization Address City/[facility]/ZIP Co de Phone Number [address] [address] * CBC and Differential (07/01/2024 11:15 AM EDT) Leukocytes 7.4 3.6 - 11.8 thou/uL 07/01/2024 11:58 AM EDT [facility] Erythrocytes 5.39 3.97 - 5.93 mil/uL 07/01/2024 11:58 AM EDT [facility] Hemoglobin 16.2 12.3 - 16.9 g/dL 07/01/2024 11:58 AM EDT [facility] Hematocrit 48.2 35.0 - 50.0 % 07/01/2024 11:58 AM EDT [facility] Mean Corpuscular Volume 89.4 77.3 - 95.6 fL 07/01/2024 11:58 AM EDT [facility] Mean Corpuscular Hemoglobin 30.1 24.1 - 32.4 pg 07/01/2024 11:58 AM [facility] Mean Corpuscular Hemoglobin Conc 33.6 30.7 - 35.7 g/dL 07/01/2024 11:58 AM [facility] Platelet Count 237 142 - 390 thou/uL 07/01/2024 11:58 AM [facility] Mean Platelet Volume 10.2 9.0 - 12.9 fL 07/01/2024 11:58 AM [facility] Erythrocyte Distribution Width SD 38.6 37.0 - 48.0 fL 07/01/2024 11:58 AM [facility] Erythrocyte Distribution Width CV 11.7 11.5 - 16.0 % 07/01/2024 11:58 AM [facility] Neutrophils Percent 59 37 - 73 % 07/01/2024 11:58 AM [facility] Lymphocytes Percent 32 15 - 50 % 07/01/2024 11:58 AM [facility] Monocytes Percent 8 5 - 14 % 11:58 AM [facility] Eosinophils Percent 0 0 - 8 % 07/01/2024 11:58 AM [facility] Basophils Percent 0 0 - 1 % 11:58 AM [facility] Immature Granulocytes Percent 0 0 - 1 % 07/01/2024 11:58 AM [facility] Neutrophils Absolute 4.38 1.50 - 8.40 thou/uL 07/01/2024 11:58 AM [facility] Lymphocytes Absolute 2.35 1.02 - 3.55 thou/uL 07/01/2024 11:58 AM [facility] Monocytes Absolute 0.62 0.26 - 1.07 thou/uL 07/01/2024 11:58 AM [facility] Eosinophils Absolute 0.00 0.00 - 0.57 thou/uL 07/01/2024 11:58 AM [facility] Basophils Absolute 0.02 0.00 - 0.08 thou/uL 07/01/2024 11:58 AM [facility] Immature Granulocytes Absolute 0.01 0.00 - 0.10 thou/uL 07/01/2024 11:58 AM [facility] Blood VENOUS STRUCTURE / Unknown Venipuncture / Unknown 07/01/2024 11:15 AM EDT 07/01/2024 11:54 AM EDT Ksenia Cano MD HEMATOLOGY ORDERABLE S Performing Organization Address City/[facility]/ZIP Co de Phone Number [address] [address] * hs- Troponin T - Panel (Base+2+4 hours) (07/01/2024 11:15 AM EDT) HS-cTroponin T 6 </=13 ng/L 07/01/2024 12:14 PM EDT [facility] Comment:NORMAL Blood VENOUS STRUCTURE / Unknown Venipuncture / Unknown 07/01/2024 11:15 AM EDT 07/01/2024 11:54 AM EDT Ksenia Cano MD CHEMISTRY ORDERABLES Performing Organization Address City/[facility]/ZIP Co de Phone Number [address] [address] * Comprehensive Metabolic Panel (07/01/2024 11:15 AM EDT) Sodium 140 135 - 145 mEq/L 07/01/2024 12:20 PM EDT [facility] Potassium 4.1 3.5 - 5.1 mEq/L 07/01/2024 12:20 PM EDT [facility] Chloride 102 96 - 108 mEq/L 07/01/2024 12:20 PM EDT [facility] Carbon Dioxide 28 21 - 30 mEq/L 07/01/2024 12:20 PM EDT [facility] Anion Gap 10 7 - 16 mEq/L 07/01/2024 12:20 PM EDT [facility] Blood Urea Nitrogen 12 6 - 20 mg/dL 07/01/2024 12:20 PM EDT [facility] Creatinine 0.94 0.50 - 1.30 mg/dL 07/01/2024 12:20 PM EDT [facility] BUN Creatinine Ratio 12.8 07/01/2024 12:20 PM EDT [facility] Glucose 93 70 - 99 mg/dL 07/01/2024 12:20 PM EDT [facility] Comment:Per ADA guidelines t hese ranges are for fasting glucose only Protein 7.5 6.4 - 8.3 g/dL 07/01/2024 12:20 PM EDT [facility] Albumin 4.5 3.5 - 5.1 g/dL 07/01/2024 12:20 PM EDT [facility] Globulin 3.0 2.0 - 3.5 g/dL 07/01/2024 12:20 PM EDT [facility] Albumin/Globulin Ratio 1.5 07/01/2024 12:20 PM EDT [facility] Bilirubin 0.3 <=1.2 mg/dL 07/01/2024 12:20 PM EDT [facility] Calcium 9.6 8.6 - 10.0 mg/dL 07/01/2024 12:20 PM EDT [facility] Alkaline Phosphatase 103 40 - 129 U/L 07/01/2024 12:20 PM EDT [facility] AST 22 8 - 48 U/L 07/01/2024 12:20 PM EDT [facility] ALT 21 7 - 55 U/L 07/01/2024 12:20 PM EDT [facility] EGFR (MDRD) >60 >60.0 mL/min/1.7 3m(2) 07/01/2024 12:20 PM EDT [facility] Comment:This test has multip le limitations. Please see [email or web address]. Blood VENOUS STRUCTURE / Unknown Venipuncture / Unknown 07/01/2024 11:15 AM EDT 07/01/2024 11:54 AM EDT Ksenia Cano MD CHEMISTRY ORDERABLES [facility] [address] [place] [address] documented in this encounter Visit Diagnoses Diagnosis Chest pain, unspecified type- Primary documented in this encounter Administered Medications Inactive Administered Medications - up to 3 most recent administrations Medication Order MAR Action Action Date Dose Rate Site aspirin chewable tablet 324 mg 324 mg, Oral, Daily, First dose on Sat07/01/24 at 1130, Possible side effects: easy bruising and bleeding, heartburn, ulcer Given 07/01/2024 11:34 AM EDT 324 mg morphine (PF) 4 MG/ML injection 4 mg 4 mg, Intravenous, Once, On Sat07/01/24 at 1130, For 1 dose, For IV Push: May be administered undiluted as IV push over 4-5 minutes; however further dilution with 5 ml Sterile Water or 0.9% NS to facilitate dose titration is appropriate. Use injectable agent if urgent/rapid analgesia is required or patient unable to take oral agent or oral agent ineffective after 60 minutes. Possible side effects: drowsiness, constipation, nausea/vomiting, rash. Given 07/01/2024 11:34 AM EDT 4 mg ondansetron (Zofran) injection 4 mg 4 mg, Intravenous, Once, On Sat07/01/24 at 1130, For 1 dose, For doses 8mg or less, may administer undiluted IV push over 2 minutes. Otherwise, dilute in 0.9% NS (sterile water not recommended) and infuse via infusion pump. Possible side effects: headache, fatigue, constipation Given 07/01/2024 11:37 AM EDT 4 mg documented in this encounter Active and Recently Administered Medications Times are shown in EDT. Scheduled Medication Order 06/29/2024 06/30/2024 07/01/2024 aspirin chewable tablet 324 mg 324 mg, Oral, Daily, First dose on Sat07/01/24 at 1130, Possible side effects: easy bruising and bleeding, heartburn, ulcer 1134 (Given - Provid er: Harry Coleman, EMT) morphine (PF) 4 MG/ML injection 4 mg (COMPLETED) 4 mg, Intravenous, Once, On Sat07/01/24 at 1130, For 1 dose, For IV Push: May be administered undiluted as IV push over 4-5 minutes; however further dilution with 5 ml Sterile Water or 0.9% NS to facilitate dose titration is appropriate. Use injectable agent if urgent/rapid analgesia is required or patient unable to take oral agent or oral agent ineffective after 60 minutes. Possible side effects: drowsiness, constipation, nausea/vomiting, rash. 1134 (Given - Provid er: Harry Coleman, EMT) ondansetron (Zofran) injection 4 mg (COMPLETED) 4 mg, Intravenous, Once, On Sat07/01/24 at 1130, For 1 dose, For doses 8mg or less, may administer undiluted IV push over 2 minutes. Otherwise, dilute in 0.9% NS (sterile water not recommended) and infuse via infusion pump. Possible side effects: headache, fatigue, constipation 1137 (Given - Provid er: Harry Coleman, EMT) documented in this encounter Care Teams Photographic Printer Relationship Specialty Start Date End Date Abigail Jesus, REAL [address] [place] [address] PCP - General Nurse Practitioner 04/10/24 07/13/24 Ariel Swanson DPM [address] [place] [address] Physician Podiatry 04/14/24 documented as of this encounter
--- OUTSIDE RECORDS SUMMARY | 2024-08-05 15:22 | XMS_ITS | Clinical Summary ---
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 Start course of NSAID. Phone: [phone] Last Assessment & Plan: History of osteochondritis dissecans of the right talus, history of lateral ankle stabilization, chronic pain with acute exacerbation. Patient was asking about possibility of physical therapy for his right ankle pain. Discussed that due to the osseous component of his pain physical therapy tends yield limited results. Patient would like to attempt regardless. Referral placed [facility] Chest pain 04/14/2024 Palpitations 04/14/2024 Panic disorder [...] Disability paperwork for patient's employer and disability [email or web address] filled out today with patient. Patient is [...] Disability paperwork for patient's employer and disability [email or web address] filled out today with patient. Patient is unable to bear weight for extended period of time and is therefore unable to perform essential duties for his job. We will follow-up in 1-1/2 to 2 months to continue monitoring of patient's symptoms, evaluate and follow, and determine potential return to work. Patient stated understanding of longitudinal care plan in place. Encounters Date Type Department Care Team Description 07/14/2024 12:36 PM EDT - 07/14/2024 1:43 PM EDT Emergency [facility] Emergency Department [address] [place] [phone] Discharge Disposition: Home or Self Care 07/01/2024 11:07 AM EDT - 07/01/2024 1:43 PM EDT Emergency [facility] Emergency Department [address] [place] [phone] Discharge Disposition: Home or Self Care 06/26/2024 11:20 AM EDT Office Visit [facility] Orthopedics Sports Medicine and Podiatry [address] [phone] Ariel Swanson DPM Arthritis of right ankle (Primary Dx); Chronic pain of right ankle; Osteochondritis dissecans of ankle, right; History of ankle surgery 05/05/2024 11:20 AM EDT Office Visit [facility] Orthoped[facility] Sports Medicine and Podiatry [address] [phone] Ariel Swanson DPM Arthritis of right ankle (Primary Dx); Chronic pain of right ankle; Osteochondritis dissecans of ankle, right; History of ankle surgery; 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 Last 3 Months Social History Tobacco Use Types Packs/Day Years [...] Mass Index 32.98 07/14/2024 12:35 PM EDT Plan of Treatment Upcoming Encounters Date Type Department Care Team (Late st Contact Info) Description 08/07/2024 11:20 AM EDT Office Visit [facility] Orthopedics Sports Medicine and Podiatry [place] [address] [place] [phone] Ariel Swanson DPM [address] [place] [address] Health Maintenance Due Date Last Done Comments Depression Screening 1997 HIV Screening with Documented Verbal Consent 2000 Hepatitis C Screening 2003 Lipid Screening 2020 TDAP/TD Vaccine 18+ 12/04/2020 12/04/2010 COVID-19 Vaccine ( season) 2024 Influenza Vaccine (#1) 2024 9, 09/11/2018, 09/10/2018, Additional history exists TAMI/ARB/ARNI Therapy: Medication Monitoring 07/01/2025 07/01/2024 Hepatitis B Vaccines Completed 06/06/2005, 12/27/2004, 05/10/2004 Pneumococcal: Peds (0-5y) OR At-Risk Patient (6-64y) Aged Out No longer [facility] based on patient's age to complete this topic Procedures Procedure Name Priority Date/Time Associated Diagnosis [...] of the right ankle as above. WORKST[facility]: [facility] * * THIS IS AN ELECTRONICALLY VERIFIED [...] of the right ankle as above. WORKSTATION: [facility] * * THIS IS AN ELECTRONICALLY VERIFIED REPORT CREATED USING VOICERECOGNITION * * 07/14/2024 1:16 PM Rito Renee DO Dhiraj Rodriguez [facility] IMG DIAGNOSTIC IMAGI NG ORDERABLES * XR [...] of the right ankle as above. WORKSTATION: [facility] * * THIS IS AN ELECTRONICALLY VERIFIED [...] of the right ankle as above. WORKSTATION: [employer] * * THIS IS AN ELECTRONICALLY VERIFIED REPORT CREATED USING VOICERECOGNITION * * 07/14/2024 1:16 PM Rito Renee DO Dhiraj Rodriguez PAC IMG DIAGNOSTIC IMAGI NG ORDERABLES * hs-TroponinT 2H (07/01/2024 1:04 PM EDT) HS-cTroponin T 2 Hour 6 </=13 ng/L 07/01/2024 1:25 PM EDT [facility] Comment:NORMAL Delta hs-TroponinT 2H 0 ng/L 07/01/2024 1:25 PM EDT [facility] Blood VENOUS STRUCTURE / Unknown Venipuncture / Unknown 07/01/2024 1:04 PM EDT 07/01/2024 1:06 PM EDT Ksenia Cano [place] [address] * XR Chest Portable 1VW (07/01/2024 11:26 [...] unremarkable. IMPRESSION: No acute process identified. WORKSTATION: [email or web address] [...] areunremarkable. IMPRESSION: No acute process identified. WORKSTATION: [id number] * * THIS IS AN ELECTRONICALLY VERIFIED [...] 410 ms [facility]ACEMASTER NAVARRO ECG QRS Horizontal Drummond -18 deg [facility]EM[facility]ER NAV[facility]O ECG QRS [place]mond -1 deg [facility]EMASTER NAVARRO 07/01/2024 11:1 6 AM EDT Impressions [facility]ACEMASTER NAVARRO - 07/02/2024 7:58 AM EDT Sinus rhythm Low voltage, precordial leads RSR' in V1 or V2, right VCD or RVH Narrative Procedure Note Urbano Tran MD - 07/02/2024 IMPRESSION Sinus rhythm Low voltage, precordial leads RSR' in V1 or V2, right VCD or RVH Ksenia Cano MD ECG ORDERABLES MARGARET BRCIEÑO * Red Top (07/01/2024 11:15 AM EDT) Just In Case - Red Top Hold for Add-on 07/01/2024 12:03 PM EDT [facility] Comment:Auto resulted Blood VENOUS STRUCTURE / Unknown Venipuncture / Unknown 07/01/2024 11:15 AM EDT 07/01/2024 11:54 AM EDT Ksenia Cano MD CHEMISTRY ORDERABLES Performing Organization Address [facility] Co de Phone Number [address] [address] * Blue Top (07/01/2024 11:15 AM EDT) Just In Case - Blue Top Hold for Add-on 07/01/2024 12:03 PM EDT [facility] Comment:Auto Resulted Blood VENOUS STRUCTURE / Unknown Venipuncture / Unknown 07/01/2024 11:15 AM EDT 07/01/2024 11:54 AM EDT Ksenia Cano MD CHEMISTRY ORDERABLES Performing Organization Address [facility] Co de Phone Number [address] [address] * hs- Troponin T - Panel (Base+2+4 hours) (07/01/2024 11:15 AM EDT) HS-cTroponin T 6 </=13 ng/L 07/01/2024 12:14 PM EDT [facility] Comment:NORMAL Blood VENOUS STRUCTURE / Unknown Venipuncture / Unknown 07/01/2024 11:15 AM EDT 07/01/2024 11:54 AM EDT Ksenia Cano MD CHEMISTRY ORDERABLES [place] [address] [place] [address] * CBC and Differential (07/01/2024 11:15 AM EDT) Leukocytes 7.4 3.6 - 11.8 thou/uL 07/01/2024 11:58 AM EDT [facility] Erythrocytes 5.39 3.97 - 5.93 mil/uL 07/01/2024 11:58 AM EDT [facility] Hemoglobin 16.2 12.3 - 16.9 g/dL 07/01/2024 11:58 AM EDT [facility] Hematocrit 48.2 35.0 - 50.0 % 07/01/2024 11:58 AM T [facility] Mean Corpuscular Volume 89.4 77.3 - 95.6 fL 07/01/2024 11:58 AM EDT [facility] Mean Corpuscular Hemoglobin 30.1 24.1 - 32.4 pg 07/01/2024 11:58 AM T [facility] Mean Corpuscular Hemoglobin Conc 33.6 30.7 - 35.7 g/dL 07/01/2024 11:58 AM [facility] Platelet Count 237 142 - 390 thou/uL 07/01/2024 11:58 AM [facility] Mean Platelet Volume 10.2 9.0 - 12.9 fL 07/01/2024 11:58 AM [facility] Erythrocyte Distribution Width SD 38.6 37.0 - 48.0 fL 07/01/2024 11:58 AM [facility] Erythrocyte Distribution Width CV 11.7 11.5 - 16.0 % 07/01/2024 11:58 AM T [facility] Neutrophils Percent 59 37 - 73 % 07/01/2024 11:58 AM EDT [facility] Lymphocytes Percent 32 15 - 50 % 07/01/2024 11:58 AM [facility] Monocytes Percent 8 5 - 14 % 11:58 AM EDT [facility] Eosinophils Percent 0 0 - 8 % 07/01/2024 11:58 AM EDT [facility] Basophils Percent 0 0 - 1 % 08/07/2 024 11:58 AM EDT [facility] Immature Granulocytes Percent 0 0 - 1 % 07/01/2024 11:58 AM EDT [facility] Neutrophils Absolute 4.38 1.50 - 8.40 thou/uL 07/01/2024 11:58 AM EDT [facility] Lymphocytes Absolute 2.35 1.02 - 3.55 thou/uL 07/01/2024 11:58 AM EDT [facility] Monocytes Absolute 0.62 0.26 - 1.07 thou/uL 07/01/2024 11:58 AM EDT [facility] Eosinophils Absolute 0.00 0.00 - 0.57 thou/uL 07/01/2024 11:58 AM EDT [facility] Basophils Absolute 0.02 0.00 - 0.08 thou/uL 07/01/2024 11:58 AM EDT [facility] Immature Granulocytes Absolute 0.01 0.00 - 0.10 thou/uL 07/01/2024 11:58 AM EDT [facility] Blood VENOUS STRUCTURE / Unknown Venipuncture / Unknown 07/01/2024 11:15 AM EDT 07/01/2024 11:54 AM EDT Ksenia Cano MD HEMATOLOGY ORDERABLE S [address] [address] * D-Dimer DDU (07/01/2024 11:15 AM EDT) D-Dimer DDU <150 <=230 ng/mL DDU 07/01/2024 12:33 PM EDT [facility] Comment:The stated range of <230 ng/mL is also the cut-off for deep vein thrombosis and/or pulmonary embolism exclusion in patients with low or moderate pretest probability. Blood VENOUS STRUCTURE / Unknown Venipuncture / Unknown 07/01/2024 11:15 AM EDT 07/01/2024 11:54 AM EDT Sophia LO HEMATOLOGY ORDERABLE S [facility] [address] [id number] * Comprehensive Metabolic Panel (07/01/2024 11:15 AM EDT) Sodium 140 135 - 145 mEq/L 07/01/2024 12:20 PM EDT [facility] Potassium 4.1 3.5 - 5.1 mEq/L 07/01/2024 12:20 PM EDT [facility] Chloride 102 96 - 108 mEq/L 07/01/2024 12:20 PM EDT [facility] Carbon Dioxide 28 21 - 30 mEq/L 07/01/2024 12:20 PM EDT [facility] Anion Gap 10 7 - 16 mEq/L 07/01/2024 12:20 PM EDT [facility] Blood Urea Nitrogen 12 6 - 20 mg/dL 07/01/2024 12:20 PM EDT [facility] Creatinine 0.94 0.50 - 1.30 mg/dL 07/01/2024 12:20 PM EDT [facility] BUN Creatinine Ratio 12.8 07/01/2024 12:20 PM EDT [facility] Glucose 93 70 - 99 mg/dL 07/01/2024 12:20 PM EDT [facility] Comment:Per ADA guidelines t hese ranges are for fasting glucose only Protein 7.5 6.4 - 8.3 g/dL 07/01/2024 12:20 PM EDT [facility] Albumin 4.5 3.5 - 5.1 g/dL 07/01/2024 12:20 PM EDT [facility] Globulin 3.0 2.0 - 3.5 g/dL 07/01/2024 12:20 PM EDT [facility] Albumin/Globulin Ratio 1.5 07/01/2024 12:20 PM EDT [facility] Bilirubin 0.3 <=1.2 mg/dL 07/01/2024 12:20 PM EDT [facility] Calcium 9.6 8.6 - 10.0 mg/dL 07/01/2024 12:20 PM EDT [facility] Alkaline Phosphatase 103 40 - 129 U/L 07/01/2024 12:20 PM EDT [facility] AST 22 8 - 48 U/L 07/01/2024 12:20 PM EDT [facility] ALT 21 7 - 55 U/L 07/01/2024 12:20 PM EDT [facility] EGFR (MDRD) >60 >60.0 mL/min/1.7 3m(2) 07/01/2024 12:20 PM EDT [facility] Comment:This test has multip le limitations. Please see [email or web address]. Blood VENOUS STRUCTURE / Unknown Venipuncture / Unknown 07/01/2024 11:15 AM EDT 07/01/2024 11:54 AM EDT Ksenia Cano MD CHEMISTRY ORDERABLES [address] [address] from Last 3 Months Insurance Payer Benefit Plan / Group Subscriber ID Effective Dates Phone Address Type [facility] [id number] 2024-[place] [employer] [address] [place] [address] Care Teams Room Service Clerk Relationship Specialty Start Date End Date Smita Daigle MD [address] [place] [address] PCP - General Family Medicine 07/14/24 Ariel Swanson DPM [address] [place] [id number] Physician Podiatry 04/14/24
--- OUTSIDE RECORDS SUMMARY | 2024-08-05 15:22 | XMS_ITS | Encounter Summary ---
Author Organization [facility] Address [address] [place] [address] Care Team Providers Care Clinical Quality Assurance Specialist Name Role Phone Abigail Jesus NP Primary Care Provider + [phone] Ariel Swanson DPM Unavailable Reason for Visit * Reason Comments Ankle Injury Foot Injury right * Consult, Test & Treat (Routine) - Authorized Specialty Diagnoses / Procedures Referred By Contac t Referred To Contact Orthopedic Diagnoses Pain in right ankle and joints of right foot Smita Daigle MD [address] [place] [address] Ariel Swanson DPM [address] [place] [address] Referral ID Status Reason Start Date Expiration Date V isits Requested Visits Authorized [id number] Authorized 04/14/2024 09/22/2024 12 12 Encounter Details Date Type Department Care Team (Late st Contact Info) Description 04/14/2024 9:30 AM EDT Office Visit [facility] Orthopedics Sports Medicine and Podiatry [place] [address] [place] [phone] Ariel Swanson DPM [address] [place] [address] Arthritis of right ankle (Primary Dx); Chronic pain of right ankle; Osteochondritis dissecans of ankle, right; Chronic gout of right ankle, unspecified cause; History of ankle surgery; 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 Social History Tobacco Use Types Packs/Day Years Used Date Smoking Tobacco: Never Smokeless Tobacco: Never Tobacco Cessation:Counseling Given: Not Answered Sex and Gender Information Value Date Recorded Sex Assigned at Not on file Gender Identity Not on file Sexual Orientation Not on file documented as of this encounter Last Filed Vital Signs Vital Sign Reading Time Taken Comments Blood Pressure 143/89 04/14/2024 9:11 AM EDT Pulse - - Temperature - - Respiratory Rate - - Oxygen Saturation - - Inhaled Oxygen Concentration - - Weight 113.4 kg (250 lb) 04/14/2024 9:11 AM EDT Height 185.4 cm (6' 1) 04/14/2024 9:11 AM EDT Body Mass Index 32.98 04/14/2024 9:11 AM EDT documented in this encounter Progress Notes * Ariel Swanson DPM - 04/14/2024 10:11 AM EDTAssociated Problem(s): 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 Thisfracture does not appear acute. Patient is having pain clinically in this area. We will mobilize and continue to monitor. Reviewed and independently interpreted imaging with patient. Answered all question patient satisfaction. Continue prescribed anti-inflammatory medication and immobilization withdispensed ankle brace. Patient stated understanding of longitudinal care plan in place. * Ariel Swanson DPM - 04/14/2024 10:09 AM EDTAssociated Problem(s): History of ankle surgery History of osteochondritis dissecans repair, ankle arthroscopy, and lateral ankle stabilization of the right ankle. Patient continuing to have chronic pain. Continue to monitor and workup. * Ariel Swanson DPM - 04/14/2024 10:08 AM EDTAssociated Problem(s): Gout, unspecified No acute evidence of gout flare of the right ankle. Arthritis on imaging resembles posttraumatic arthritis/primary osteoarthritis as compared to gouty arthritis. Underlying gout could potentially be playing a factor in patient's pain. I recommend continuing allopurinol 200 mg daily at this time. Continue to monitor. 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 Patient is continuing to have right ankle pain, acute on chronic. We will attempt immobilizationand anti-inflammatory modalities and continue to monitor symptoms. Follow-up in 2 to 3 weeks. Patient stated understanding of longitudinal care plan in place. * Ariel Swanson DPM - 04/14/2024 10:07 AM EDTAssociated Problem(s): Chronic pain of right ankle History of osteochondritis dissecans of the right talus, history of lateral ankle stabilization, chronic pain with acute exacerbation. * Ariel Swanson DPM - 04/14/2024 10:06 AM EDTAssociated Problem(s): Arthritis of right ankle Discussed etiology of right ankle arthritis. Reviewed and independently interpreted external imaging with patient. Answered all questions patient satisfaction. Discussed treatment options ranging from conservative to surgical care. Discussed with patient that first-line treatment for ankle arthritis is immobilization and inflammation control. Discussed use of anti-inflammatory medication, icing, elevation, and compression dressings. Patient has recently completed a course of Medrol Dosepak thatdid not improve symptoms. Decision was made to attempt prescription strength NSAIDs. Prescription for diclofenac 75 mg twice daily as needed sent to patient's pharmacy. Discussed taking routinely for 1 week and then using as needed at that point. Discussed immobilization with OTC bracing modalities. Fitted and dispensed ankle stabilizer brace today. Patient stated comfort in the brace. Long discussion was had with patient about potential surgical options as he has been dealing with this condition for an extended period of time. Discussed that based on the level of arthritis that is present inhis right ankle treatment options consist of ankle joint replacement, ankle arthrodesis, or (based on patient's initial request) below-knee amputation with prosthesis. Discussed that due to patient'betsy he is not an ideal candidate for ankle joint replacement. Discussed most appropriate treatment modality if we get to the point of surgical discussion would be ankle arthrodesis. Prior to proceeding with an ankle arthrodesis I would recommend a more custom AFO to attempt to immobilize the ankle joint further. There could be additional underlying causes of ankle pain not related to his arthritis in these differential diagnoses would need to be explored further before progressing to surgical intervention. Patient stated understanding. We will attempt immobilization and anti-inflammatory modalities for the next 2 to 3 weeks and follow-up at that time for continued monitoring. Patient statedunderstanding of longitudinal care plan in place. * Ariel Swanson DPM - 04/14/2024 9:51 AM EDT HPI: Vitor Dias presents with a chief complaint of chronic right ankle pain that has become acutelymore painful. Patient has a significant history with this ankle. States he sprained this ankle approximately 5 to 6 years ago and initially underwent an arthroscopy of the ankle joint where cartilage was cleaned up. He later underwent a lateral ankle stabilization of the right ankle which seem toalleviate pain for a while. States that he has dealt with gouty flares in this ankle in the past. He is currently utilizing allopurinol 200 mg daily and has not had an acute gout flare in a long time. He recently attempted a Medrol Dosepak prescribed by an outside provider that did not seem to alleviate his right ankle pain. States that compression dressings tend to help his right ankle pain. He has attempted a cam boot for immobilization, but this caused significant back pain and he is unable to utilize this form of immobilization. States that the pain is most notable when he is weightbearing, but can cause sudden spasms/shooting pains on both the medial and lateral aspects of the ankle.States that he has been unable to work for the last 2 weeks due to the significant pain in his right ankle. He is here today to discuss treatment options. Patient states he is ready to cut his leg off if that is an option. He is utilizing crutches for ambulation. Denies any other pedal complaints. Denies any constitutional symptoms. His PCP is Abigail Jesus. Referring provider is Smita Daigle. Referral and most recent office note reviewed in detail prior to this appointment. History: No past medical history on file. [...] depressive disorder, recurrent episode, with atypical features ([facility] V24) Major depressive disorder, recurrent, severe with [...] systems reviewed and are negative. Vital Signs: BP 143/89 Ht 1.854 m (6' 1) Wt 113.4 [...] ankle. Assessment/Plan: 1. Arthritis of right ankle diclofenac (Voltaren) 75 MG Tablet Delayed Response 2. Chronic pain of right ankle 3. Osteochondritis dissecans of ankle, right 4. Chronic gout of right ankle, unspecified cause 5. History of ankle surgery 6. 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 Reviewed and independently interpreted external imaging with patient. Answered all questions patient satisfaction. Discussed treatment options ranging from conservative to surgical care. Discussed with patient that first-line treatment for ankle arthritis is immobilization and inflammation control. Discussed use of anti-inflammatory medication, icing, elevation, and compression dressings. Patient has recently completed a course of Medrol Dosepak thatdid not improve symptoms. Decision was made to attempt prescription strength NSAIDs. Prescription for diclofenac 75 mg twice daily as needed sent to patient's pharmacy. Discussed taking routinely for 1 week and then using as needed at that point. Discussed immobilization with OTC bracing modalities. Fitted and dispensed ankle stabilizer brace today. Patient stated comfort in the brace. Long discussion was had with patient about potential surgical options as he has been dealing with this condition for an extended period of time. Discussed that based on the level of arthritis that is present inhis right ankle treatment options consist of ankle joint replacement, ankle arthrodesis, or (based on patient's initial request) below-knee amputation with prosthesis. Discussed that due to patient'betsy he is not an ideal candidate for ankle joint replacement. Discussed most appropriate treatment modality if we get to the point of surgical discussion would be ankle arthrodesis. Prior to proceeding with an ankle arthrodesis I would recommend a more custom AFO to attempt to immobilize the ankle joint further. There could be additional underlying causes of ankle pain not related to his arthritis in these differential diagnoses would need to be explored further before progressing to surgical intervention. Patient stated understanding. We will attempt immobilization and anti-inflammatory modalities for the next 2 to 3 weeks and follow-up at that time for continued monitoring. Patient statedunderstanding of longitudinal care plan in place. Chronic pain of right ankle History of osteochondritis dissecans of the right talus, history of lateral ankle stabilization, chronic pain with acute exacerbation. 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 Patient is continuing to have right ankle pain, acute on chronic. We will attempt immobilizationand anti-inflammatory modalities and continue to monitor symptoms. Follow-up in 2 to 3 weeks. Patient stated understanding of longitudinal care plan in place. Gout, unspecified No acute evidence of gout flare of the right ankle. Arthritis on imaging resembles posttraumatic arthritis/primary osteoarthritis as compared to gouty arthritis. Underlying gout could potentially be playing a factor in patient's pain. I recommend continuing allopurinol 200 mg daily at this time. Continue to monitor. History of ankle surgery History of osteochondritis dissecans repair, ankle arthroscopy, and lateral ankle stabilization of the right ankle. Patient continuing to have chronic pain. Continue to monitor and workup. 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 Thisfracture does not appear acute. Patient is having pain clinically in this area. We will mobilize and continue to monitor. Reviewed and independently interpreted imaging with patient. Answered all question patient satisfaction. Continue prescribed anti-inflammatory medication and immobilization withdispensed ankle brace. Patient stated understanding of longitudinal care plan in place. Ariel Swanson DPM E&M decision makin+ chronic illnesses/injuries with acute exacerbation, review of external notes, review and independent interpretation of x-rays performed by another provider at another facility, prescription management, greater than 60 minutes was spent in review of notes preappointment, f troy-to-face with patient, documenting, and coordination of care after appointment. [id number]: Plan for longitudinal care with treatment plan in place. Medication management, diagnostic surveillance, and clinical decision making in order to manage chronic condition. I am continuing to provide medical management and clinical decision making in order to manage this condition (Documentation in part created by Loulou Burrell Speaking voice recognition) documented in this encounter Plan of Treatment Upcoming Encounters Date Type Department Care Team (Late st Contact Info) Description 08/07/2024 11:20 AM EDT Office Visit [facility] Orthopedics Sports Medicine and Podiatry [place] [address] [place] [phone] Ariel Swanson DPM [address] [place] [address] documented as of this encounter Visit Diagnoses Diagnosis Arthritis of right ankle- Primary Unspecified arthropathy, ankle and foot Chronic pain of right ankle Osteochondritis dissecans of ankle, right Chronic gout of right ankle, unspecified cause History of ankle surgery 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
--- OUTSIDE RECORDS SUMMARY | 2024-08-05 15:22 | XMS_ITS | Encounter Summary ---
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 Ariel Swanson DPM [address] [place] [address] [address] Referral ID Status Reason Start Date Expiration Date V isits Requested Visits Authorized [id number] New Request 05/05/2024 05/05/2025 3 3 Reason for Visit * Reason Comments Ankle Pain Right arthritis * Consult, Test & Treat (Routine) - Authorized Specialty Diagnoses / Procedures Referred By Farhat moon Referred To Contact Orthopedic Diagnoses Pain in right ankle and joints of right foot Smita Daigle MD [address] [place] [address] Ariel Swanson DPM [facility] [place] [address] Referral ID Status Reason Start Date Expiration Date V isits Requested Visits Authorized [id number] Authorized 04/14/2024 09/22/2024 12 12 Encounter Details Date Type Department Care Team (Late st Contact Info) Description 05/05/2024 11:20 AM EDT Office Visit [facility] Orthopedics Sports Medicine and Podiatry [place] [address] [place] [address] Ariel Swanson DPM [address] [place] [address] Arthritis of right ankle (Primary Dx); Chronic [...] Sign Reading Time Taken Comments Blood Pressure 150/94 05/05/2024 11:23 AM EDT Pulse - - Temperature - - Respiratory Rate - - Oxygen Saturation - - Inhaled Oxygen Concentration - - Weight 113.4 kg (250 lb) 05/05/2024 11:23 AM EDT Height 185.4 cm (6' 1) 05/05/2024 11:23 AM EDT Body Mass Index 32.98 05/05/2024 11:23 AM EDT documented in this encounter Progress Notes * Ariel Swanson DPM - 05/05/2024 12:01 PM EDTAssociated Problem(s): Chronic pain of right ankle History of osteochondritis dissecans of the right talus, history of lateral ankle stabilization, chronic pain with acute exacerbation. 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 Patient is continuing to have right ankle pain, acute on chronic. We will attempt immobilizationand anti-inflammatory modalities and continue to monitor symptoms. Discussed treatment options following initial first-line treatment ranging from more custom AFO to surgical intervention. Patient ishoping to avoid surgical intervention and is amenable to attempting custom AFO for immobilization. Prescription referral placed for custom Joann AFO for the right ankle. Discussed that until patient receives his new AFO he should continue to utilize the ankle stabilizer brace. Continue to use dicl ofenac as needed for pain control. Disability paperwork for patient's [employer] and disability [employer] filled out today with patient. Patient is [...] in place. * Ariel Swanson DPM - 05/05/2024 12:00 PM EDTAssociated Problem(s): Closed avulsion fracture of medial [...] anti-inflammatory medication and immobilization withdispensed ankle brace. Discussed treatment options following initial first-line treatment ranging from more custom AFO to surgical intervention. Patient is hoping to avoid surgical intervention and is amenable to attempting custom AFO for immobilization. Prescription referral placed for custom Joann AFO for the right ankle. Discussed that until patient receives his new AFO he should continue toutilize the ankle stabilizer brace. Continue to use diclofenac as needed for pain control. Disability paperwork for patient's employer and disability [employer] filled out today with patient. Patient isunable to bear weight for extended period of time and is therefore unable to perform essential duties for his job. We will follow-up in 1-1/2 to 2 months to continue monitoring of patient's symptoms,evaluate and follow, and determine potential return to work. Patient stated understanding of longitudinal care plan in place. * Ariel Swanson DPM - 05/05/2024 11:59 AM EDTAssociated Problem(s): Arthritis of right ankle Reviewed etiology of right ankle arthritis. Reviewed and independently interpreted external imagingwith patient. Answered all questions patient satisfaction. Discussed treatment options ranging fromconservative to surgical care. Patient has been noticing improvement with ankle stabilizer brace. Di scussed treatment options following initial first-line treatment ranging [...] monitoring of patient's symptoms, evaluate and follow, anddetermine potential return to work. Patient stated understanding of longitudinal care plan in place. * Ariel Swanson DPM - 05/05/2024 11:54 AM EDT HPI: Vitor Dias returns to clinic for follow-up of chronic right ankle pain. Patient states his pain is moderately improved with use of OTC ankle stabilizer brace and prescribed anti-inflammatory medication. States that he is no longer at the point where he wants to cut his leg off, but is still having significant pain and is unable to bear weight for anything longer than 15 to 30 minutes. States that some days when he wakes up he has significant pain in the ankle and it takes him 1 to 2 hours to be able to get out of bed as he attempts to move his ankle to prepare for movement. He states that he has noticed improvement with the brace, but if there is significant motion at the ankle or subtalar joint he notices continued pain. He is here today to discuss continued treatment options. Patient states he is still open to potential surgical intervention, but is not necessarily looking for immediate surgical intervention if there are more conservative treatments available. Denies any other pedal complaints. Denies any [...] depressive disorder, recurrent episode, with atypical features ([facility] V24) Major depressive disorder, recurrent, [...] reviewed and are negative. Vital Signs: BP (!) 150/94 Ht 1.854 m (6' 1) Wt 113.4 [...] 1. Arthritis of right ankle AMB REFERRAL FOR ORTHOTICS 2. Chronic pain of right ankle AMB REFERRAL FOR ORTHOTICS 3. Osteochondritis dissecans of ankle, right AMB REFERRAL FOR ORTHOTICS 4. History of ankle surgery AMB REFERRAL FOR ORTHOTICS 5. 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 Reviewed and independently interpreted external imagingwith patient. Answered all questions patient satisfaction. Discussed treatment options ranging fromconservative to surgical care. Patient has been noticing improvement with ankle stabilizer brace. Di scussed treatment options following initial first-line treatment ranging [...] Disability paperwork for patient's employer and disability [employer] filled out today with patient. Patient is unable to bear weight for extended period of time and is therefore unable to perform essential duties for his job. We will follow-up in 1-1/2 to 2 months to continue monitoring of patient's symptoms, evaluate and follow, anddetermine potential return to work. Patient stated understanding of longitudinal care plan in place. Closed avulsion fracture of medial malleolus of [...] anti-inflammatory medication and immobilization withdispensed ankle brace. Discussed treatment options following initial first-line treatment ranging from more custom AFO to surgical intervention. Patient is hoping to avoid surgical intervention and is amenable to attempting custom AFO for immobilization. Prescription referral placed for custom Joann AFO for the right ankle. Discussed that until patient receives his new AFO he should continue toutilize the ankle stabilizer brace. Continue to use diclofenac as needed for pain control. Disability paperwork for patient's [employer] and disability [employer] filled out today with patient. Patient isunable to bear weight for extended period of time and is therefore unable to perform essential duties for his job. We will follow-up in 1-1/2 to 2 months to continue monitoring of patient's symptoms,evaluate and follow, and determine potential return to work. Patient stated understanding of longitudinal care plan in place. 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 Patient is continuing to have right ankle pain, acute on chronic. We will attempt immobilizationand anti-inflammatory modalities and continue to monitor symptoms. Discussed treatment options following initial first-line treatment ranging from more custom AFO to surgical intervention. Patient ishoping to avoid surgical intervention and is amenable to attempting custom AFO for immobilization. Prescription referral placed for custom Joann AFO for the right ankle. Discussed that until patient receives his new AFO he should continue to utilize the ankle stabilizer brace. Continue to use dicl ofenac as needed for pain control. Disability paperwork [...] ankle stabilization, chronic pain with acute exacerbation. Ariel Swanson DPM E&M decision making: A [...] this condition (Documentation in part created by [employer] Speaking voice recognition) documented in this encounter Plan of Treatment Upcoming Encounters Date Type Department Care Team (Late st Contact Info) Description 08/07/2024 11:20 AM EDT Office Visit [facility] Orthopedics Sports Medicine and Podiatry [place] [address] [place] [address] Ariel Swanson DPM [address] [place] [address] Scheduled Referrals Name Type Priority Associated Diagnoses Orde r Schedule AMB REFERRAL FOR ORTHOTICS Outpatient Referral Routine Arthritis of right ankle Chronic pain of right ankle Osteochondritis dissecans of ankle, right History of ankle surgery 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 Ordered: 05/05/2024 documented as of this encounter Visit Diagnoses Diagnosis Arthritis of right ankle- Primary Unspecified arthropathy, ankle and foot Chronic pain of right ankle Osteochondritis dissecans of ankle, right History of ankle surgery 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
--- OUTSIDE RECORDS SUMMARY | 2024-08-05 15:23 | XMS_ITS | Encounter Summary ---
Author Organization [facility] Address [address] [place] [address] Care Team Providers Care Hotel [employer] Attendant Name Role Phone Unavailable Primary Care Provider Unavailabl e Encounter Details Date Type Department Care Team (Latest Contact Info) Description 03/25/2024 - 03/25/2024 11:59 PM EDT Hospital Encounter [facility] Radiology Outside Films Virtual [address] [place] [phone] Discharge Disposition: Home or Self Care Social History Tobacco Use Types Packs/Day Years Used Date Smoking Tobacco: Never Assessed Sex and Gender Information Value Date Recorded Sex Assigned at Not on file Gender Identity Not on file Sexual Orientation Not on file documented as of this encounter Medications at Time of Discharge Medication Sig Dispensed Refills Start Date End Date acetaminophen (Tylenol) 500 MG Tab TAKE 2 TABLETS (1000MG) BY MOUTH THREE TIMES A DAY NEEDED FOR PAIN 0 02/25/2024 02/25/2025 Diclofenac Sodium 1 % Gel APPLY 2 [...] 0 02/25/2024 documented as of this encounter Plan of Treatment Upcoming Encounters Date Type Department Care Team (Late st Contact Info) Description 08/07/2024 11:20 AM EDT Office Visit [facility] Orthopedics Sports Medicine and Podiatry [place] [address] [place] [address] Ariel Swanson DPM [address] [place] [address] documented as of this encounter Procedures Procedure Name Priority Date/Time Associated Diagnosis Comments XR DIGITIZED OUTSIDE FILMS Routine 04/14/2024 12:10 PM EDT Special exam documented in this encounter Results * XR Digitized Outside Films (04/14/2024 12:10 PM EDT) Anatomical Region Laterality Modality Computed Radiogr aphy 03/25/2024 Narrative 04/14/2024 12:20 PM EDT The radiologic images identified above were digitized into [employer]'s PACS System at the request of the clinical service taking care of this patient. ??A formal interpretation of these images was not requested by the clinical service, and therefore was not performed. ??The original radiologic images and formal interpretation of this examination reside at the facility where the original images were created as noted on the images. ??The [facility] and its attending Radiologists have no knowledge as to either the content of these images or the results of the formal interpretation. ??There are inherent limitations with the quality of archived images, and follow-up patient studies may be necessary for diagnostic or treatment purposes. ??Diagnostic or treatment decisions should not be based upon radiologic images without a formal interpretation. ??In order to request a formal interpretation, please enter an order in Epic or telephone your facility's Radiology Department/Film Library to have the order entered. ??A formal interpretation will be rendered within a timeframe consistent with the hospital Radiology Department's applicable policies and procedures and then made available in PACS. Procedure Note System, [employer], - 04/14/2024 The radiologic images identified above were digitized into [employer] System at the request of the clinical service taking care of thispatient. A formal interpretation of these images was not requested by theclinical service, and therefore was not performed. The original radiologic images and formal interpretationof this examination reside at the facility where the original images werecreated as noted on the images. The hospital and its attendingRadiologists have no knowledge as to either the content of these images or the results of the formalinterpretation. There are inherent limitations with the quality ofarchived images, and follow-up patient studies may be necessary fordiagnostic or treatment purposes. Diagnostic or treatment decisions should not be based upon radiologic images without aformal interpretation. In order to request a formal interpretation,please enter an order in [employer] or telephone your facility's RadiologyDepartment/Film Library to have the order entered. A formal interpretation will be rendered within a timeframeconsistent with the hospital Radiology Department's applicable policiesand procedures and then made available in PACS. Provider Not In System IMG DIAGNOSTIC IM AGING ORDERABLES documented in this encounter Visit Diagnoses Diagnosis Special exam Unspecified examination documented in this encounter
== END 2024-08-05 15:35 | disposition home or self-care (01) ==
LOC: ER 15:20
PROVIDERS: Emergency Provider Emergency Medicine
DX: R07.9 Chest pain, unspecified (principal); M79.671 Pain in right foot
CPT/HCPCS: 36415; 80053; 93005; 96374; 99284; 71046; 73630; 83735; 84484; 85025; 85379; 93010; 99283; J2060